=== PATIENT | male | born 1935 | race Caucasian/White ===

== ENCOUNTER → 2020-05-09 06:45 | Outpatient (CLI) | payer MEDICARE, OTHER, SELFPAY ==
[2020-03-24 12:37] VITALS: BMI 27.1
--- NOTE | 2020-05-09 14:39 | PFTCOMP_ITS ---
COMPLETE PULMONARY FUNCTION TEST INTERPRETATION Brief HPI: Patient is an 85 year old male, currently under the care of myself, who presents to [facility] for complete pulmonary function tests secondary to diagnosis of dyspnea. Respiratory therapist reports good effort and reproducible results. Interpretation: Forced expiration spirometry shows no large airways obstructive ventilatory defect with an FEV1 of 90% predicted. There is no significant bronchodilator response by strict ATS criteria. Spirograms are of good quality and plateau normally. The respiratory flow volume loop shows a normal pattern. Lung volumes by body plethysmography show a decreased total lung capacity at 4.95 L, 79% predicted. All other lung volumes are reduced symmetrically. Diffusion capacity by carbon monoxide is at the lower limit of normal at 78% predicted. The airway resistance is normal. No previous pulmonary function tests were available for review. 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
== END ==
PROVIDERS: PCP Family Medicine; Referring Provider Internal Medicine Critical Care Medicine; Visit Provider Internal Medicine Critical Care Medicine
DX: R06.00 Dyspnea, unspecified (principal); J98.6 Disorders of diaphragm
CPT/HCPCS: 94060; 94726; 94729

== ENCOUNTER → 2021-04-06 09:45 | Outpatient (CLI) | payer MEDICARE, OTHER, SELFPAY ==
[2020-10-31 09:23] VITALS: BMI 27.4
--- NOTE | 2021-04-06 13:35 | PFT ---
INTRODUCTION: The patient's is an 86-year-old male that presents for pulmonary function studies secondary to a diagnosis of asthma. Respiratory therapy reports good patient effort. Bronchodilators were used during testing. INTERPRETATION: Forced expiration spirometry demonstrates no evidence of a large airways obstructive ventilatory defect. There was no significant response to aerosolized bronchodilators. Spirograms are of good quality and plateau normally. Body plethysmography was performed and revealed a decreased TLC to 4.99 L, 79% of predicted, indicative of a mild restrictive ventilatory impairment. Diffusing capacity by single breath CO is reduced at 62% of predicted. When compared to previous pulmonary function studies from May 2020, there has been an 11% reduction in FEV1 along with a 20% reduction in DLCO. IMPRESSION: Mild restrictive ventilatory impairment with symmetric reduction in diffusing capacity. There has been worsening in the patient's FEV1 and DLCO since 2019, as noted above.
== END ==
PROVIDERS: PCP Family Medicine; Referring Provider Nurse Practitioner Acute Care; Visit Provider Nurse Practitioner Acute Care
DX: J45.909 Unspecified asthma, uncomplicated (principal)
CPT/HCPCS: 94060; 94726; 94729

== ENCOUNTER → 2021-06-07 14:44 | Outpatient (CLI) | payer MEDICARE, OTHER, SELFPAY ==
--- NOTE | 2021-06-07 14:46 | CT_ITS ---
STUDY: CT CHEST WITHOUT CONTRAST REASON FOR EXAM: Male, 86 years old. Right middle lobe lung nodule on abdominal CT. RADIATION DOSAGE (If Supplied By Facility): CTDIvol = ( 13.72 ) mGy, DLP = ( 477.73 ) mGycm TECHNIQUE: Transaxial imaging was performed without the administration of intravenous contrast material. Multiplanar coronal and sagittal images were reformatted. Individualized dose optimization techniques were used for this CT. COMPARISON: None. FINDINGS: There is a 4 mm soft tissue nodule in the right lung apex (image 15, series 4) on image 17 there is a right upper lobe 3 mm nodule. This also minimal stranding. There is a 3 mm soft tissue nodule in the right upper lobe on image 33. A 5 mm calcified nodule seen along the posterior pleural surface of the right upper lobe on image 36 there is a 3 mm soft tissue nodule anteriorly in the right upper lobe on image 62 . There is nodule in the right middle lobe along the right heart margin measuring 3 mm best seen on image 75. There is no evidence of infiltrate. There is mild emphysematous change. There is no demonstrated pleural abnormality. Normal heart and pericardium. There are calcifications of the coronary arteries. Is evidence of calcified mediastinal lymphadenopathy. Calcified lymph nodes are also seen in the subcarinal region. Normal hilar regions. Normal unenhanced pulmonary arteries. Mild atherosclerotic changes of the thoracic aorta without aneurysm. There are multi-level degenerative changes of the thoracic spine. Calcified granulomata are seen throughout the spleen. CT/Chest without Contrast IMPRESSION: 1. Multiple pulmonary nodules. These may represent uncalcified granulomata in light of the presence of old granulomatous disease. Follow-up CT in 6 months or years is recommended to confirm stability. Electronically Signed: Nathan Murcia DO at 22:52 EDT Tel [phone], Service support ,
== END ==
PROVIDERS: PCP Family Medicine; Referring Provider Internal Medicine Critical Care Medicine; Visit Provider Internal Medicine Critical Care Medicine
DX: R91.1 Solitary pulmonary nodule (principal)
CPT/HCPCS: 71250

== ENCOUNTER 2021-11-08 12:40 | Outpatient (CLI) | payer MEDICARE, OTHER, SELFPAY ==
--- NOTE | 2021-11-08 12:44 | CT_ITS ---
STUDY: CT CHEST WITHOUT CONTRAST REASON FOR EXAM: Male, 86 years old. Multiple nodules, some new RADIATION DOSAGE (If Supplied By Facility): CTDIvol = ( 14.47 ) mGy, DLP = ( 506.09 ) mGycm TECHNIQUE: Transaxial imaging was performed without the administration of intravenous contrast material. Multiplanar coronal and sagittal images were reformatted. Individualized dose optimization techniques were used for this CT. COMPARISON: Comparison is made with prior examination dated 06/07/2021. FINDINGS: Stable small benign-appearing bilateral axillary lymph nodes. Stable 3.6 mm noncalcified nodule in the right lung apex as seen on axial image #16. There is a new cavitated nodule measuring 2.3 cm x 2.6 cm in the posterior medial aspect of the left upper lobe. There is also evidence of a new nodule in the lateral aspect of the left upper lobe measuring 9.4 mm as seen on axial image #35. There is a 8.5 mm noncalcified nodule in the posterior medial aspect of the left upper lobe as seen Image #62. There is a new 5.8 mm pleural-based nodule in the lateral aspect of the left upper lobe as seen on axial image #56. This has increased in size as compared to prior study. Since prior study, there is a been a progression in the interstitial markings at the lung bases as well as in the upper lobes suggestive of progressive scarring. There is no demonstrated pleural abnormality. There are calcifications of the coronary arteries. Calcified azygos lymph node. Small mediastinal lymph nodes. Calcified left hilar lymph node. Normal unenhanced pulmonary arteries. There is atherosclerotic calcification of the aortic arch with tortuosity and elongation of the aortic arch and descending thoracic aorta. There are multi-level degenerative changes of the thoracic spine. Calcified splenic granulomas. CT/Chest without Contrast IMPRESSION: Since prior study, there has been a progression in the number as well as size of bilateral pulmonary nodules. A dominant cavitated nodule is seen in the posterior medial aspect of the left upper lobe abutting the left major fissure. This measures 2.3 size by 2.6 cm. Correlates with a PET scan is recommended. Electronically Signed: Victoriano Machuca MD at 13:22 EST ,
== END 2021-11-08 23:59 | disposition short-term general hospital (02) ==
LOC: CT 12:43
PROVIDERS: PCP Family Medicine; Referring Provider Nurse Practitioner Acute Care; Visit Provider Nurse Practitioner Acute Care
DX: R91.8 Other nonspecific abnormal finding of lung field (principal)
CPT/HCPCS: 71250

== ENCOUNTER 2021-11-13 09:42 | Outpatient (CLI) | payer MEDICARE, OTHER, SELFPAY ==
[2021-11-13 10:12] LABS: Platelet Count 245 K/mm3 (150-450)
[2021-11-13 10:25] LABS: International Normalized Ratio 1.3; Prothrombin Time (Protime)PT. 15.2 SECONDS (11.7-14.9)
[2021-11-13 10:26] LABS: Partial Thromboplast Time 32.8 Seconds (24.1-36.2)
== END 2021-11-13 23:59 | disposition home or self-care (01) ==
LOC: PAVLAB 09:44
PROVIDERS: PCP Family Medicine; Referring Provider Nurse Practitioner Acute Care; Visit Provider Nurse Practitioner Acute Care
DX: R06.02 Shortness of breath (principal); R91.8 Other nonspecific abnormal finding of lung field
CPT/HCPCS: 36415; 85049; 85610; 85730

== ENCOUNTER 2021-11-24 08:33 | Outpatient (CLI) | payer MEDICARE, OTHER, SELFPAY ==
[2021-11-24] VITALS (15 sets, daily range): BP systolic 87–132; BP diastolic 39–82; PULSE 63–97; RESP 13–34; TEMP 36.4; O2SAT 95–100; BMI 25.8
--- NOTE | 2021-11-24 | ASPIGT_PTH ---
PATIENT: GARRETT MAY LOC: [place] U#:[id number] AGE/SX: 86/M ROOM: RE11/24/[address]: ALEXA Riley : 1935 BED: DIS: 11/24/2021 SPEC #: [id number] RECD: 11/24/21 11:00 STATUS: SHERLY MAGDALENA #: [id number] JAISON: 11/24/21 00:[address]: Alondra Mcbride NP DEPT: SURGICAL PATHOLOGY RECD BY: Ekaterina Lozano ENTERED: 11/24/21 13:03 SP TYPE: ASP RAD OTHR DR: Dr. Marco Resendiz MD Tissues: Liver, NOS Procedures: FNA Specimen Adequacy Special Stain Group II Surgery Specimen Level IV Imprint (control) HEADER OPERATION: CT-guided left lung biopsy PRE-OP DIAGNOSIS: Left lung mass 2 cm TISSUE SUBMITTED: Left lung mass, CT-guided core biopsy MICROSCOPIC DIAGNOSIS Left lung mass, CT-guided core biopsy: Scant minute fragments of lung parenchymal tissue, negative for malignancy. See comment. DAVID:emely 11/27/2021 COMMENT The specimen is evaluated at the time of biopsy by Dr. Darling. Immediate Evaluation = Negative for malignant cells. If there is high suspicion of malignancy, re-biopsy is suggested if clinically indicated. MICROSCOPIC DESCRIPTION Slides are reviewed. GROSS DESCRIPTION Received in fixative is one container labeled with the patient's name and designated left lung mass, CT-guided core biopsy. The specimen consists of scant fragments of nails soft tissue measuring 0.2 x 0.2 x <0.1 cm. The specimen is totally submitted in one cassette. Two touch imprints are prepared at the time of core biopsy. / DAVID:emely 11/24/2021 TC: Cannot code CPT: 32517, 80681
--- NOTE | 2021-11-24 08:38 | CT_ITS ---
PROCEDURE: CT GUIDED CORE NEEDLE BIOPSY OF A LEFT LUNG LESION INDICATION: Male, 86 years old. Left lung mass 2 cm PHYSICIAN: Dr. TOMER Nichole CONSENT: Written informed consent was obtained having explained the risks, benefits and alternatives in detail with the patient who accepted the risks and agreed to proceed. Laboratory review and clinical assessment was performed. CONSCIOUS SEDATION PROTOCOL: The Drugs used were: 2 mg Versed, IV., and 50 mcg Fentanyl, IV. The sedation time was: 23 minutes. Conscious sedation was started at 10:25 AM and terminated at 10:48 AM The conscious sedation protocol was independently monitored. RADIATION DOSAGE (If Supplied By Facility): CTDIvol = ( 17 ) mGy, DLP = ( 514.15 ) mGycm Individualized dose optimization techniques were used for this CT. TECHNIQUE: The patient was placed in the prone position. A noncontrast CT was performed to localize the lesion in the left upper lobe . The skin surface was prepped and draped in a sterile fashion. 1% lidocaine was used for local anesthesia. Using CT guidance, a 20-gauge coaxial biopsy device was advanced to the periphery of the lesion. A total of 5 core specimens were obtained. The specimens were placed in a formalin solution. A post procedure CT demonstrated no adverse sequelae or pneumothorax. The patient tolerated the procedure well without adverse event. A negative biopsy does not exclude malignancy. Further imaging or clinical followup based on patient condition and degree of clinical suspicion for malignancy. Suggest rebiopsy, if biopsy results do not match with clinical scenario. CT/Biopsy/Inj or Needle Placement IMPRESSION: 1. CT directed core needle biopsy of the left upper lobe pulmonary nodule using CT image guidance with image documentation as described. Pathology results are pending. 2. Conscious Sedation protocol utilized with independent monitoring. Electronically Signed: Victoriano Machuca MD at 11:16 EST ,
--- NOTE | 2021-11-24 09:57 | NURSING ---
Patient's pre-procedural assessment lung sounds were reported to Dr. Machuca. Breathing treatment was ordered (see MAR). Respiratory and pharmacy notified of order as well as patient. Pt agreeable to breathing treatment prior to biopsy.
[2021-11-24] MEDS: Ipratropium/Albuterol Sulfate 3 ML AMPUL.NEB INHALATION (10:02)
[2021-11-24] MEDS: Midazolam 2 MG/2 ML Syringe IV (10:25)
[2021-11-24] MEDS: fentaNYL 100 MCG/2 ML Ampul IV (10:28)
[2021-11-24] MEDS: Lidocaine 2% (20 ml mdv) 20 ML Vial INFILT (10:35)
--- NOTE | 2021-11-24 10:58 | RAD_ITS ---
STUDY: X-RAY CHEST REASON FOR EXAM: Male, 86 years old. Pneumothorax -- Immediately post lung biopsy TECHNIQUE: AP inspiration and expiration views. COMPARISON: None. FINDINGS: The patient is status post left upper lobe lung biopsy. There is no evidence of pneumothorax. RAD/Chest Insp/Exp 2 View IMPRESSION: No evidence of pneumothorax on the immediate post left lung biopsy radiographs. Electronically Signed: Victoriano Machuca MD at 11:14 EST ,
--- NOTE | 2021-11-24 13:01 | RAD_ITS ---
STUDY: X-RAY CHEST REASON FOR EXAM: Male, 86 years old. Pneumothorax -- 2 hours post lung biopsy TECHNIQUE: AP inspiration and expiration views. COMPARISON: Comparison is made with prior study done earlier today. FINDINGS: No evidence of pneumothorax on the 2 hour post lung biopsy radiographs. RAD/Chest Insp/Exp 2 View IMPRESSION: No evidence of pneumothorax on the 2 hour post lung biopsy radiograph. Electronically Signed: Victoriano Machuca MD at 8:30 EST ,
== END 2021-11-24 23:59 | disposition home or self-care (01) ==
LOC: CT 08:35
PROVIDERS: PCP Family Medicine; Referring Provider Nurse Practitioner Acute Care; Visit Provider Nurse Practitioner Acute Care
DX: R91.8 Other nonspecific abnormal finding of lung field (principal)
CPT/HCPCS: 32408; 71046; 77012; 88172; 88305; 88307; 88313; 94640; 99156; J7040; A4216

== ENCOUNTER 2021-12-27 13:55 | Outpatient (CLI) | payer MEDICARE, OTHER, SELFPAY | END 2021-12-27 23:59 | disposition home or self-care (01) | LOC: LAB 13:57 | PROVIDERS: PCP Family Medicine; Referring Provider Internal Medicine Critical Care Medicine; Visit Provider Internal Medicine Critical Care Medicine | DX: R06.02 Shortness of breath (principal); R05.8 Other specified cough; R91.8 Other nonspecific abnormal finding of lung field | CPT/HCPCS: 87070; 87205 ==

== ENCOUNTER 2021-12-29 11:59 | Outpatient (CLI) | payer MEDICARE, OTHER, SELFPAY ==
[2021-12-29 12:20] LABS: Platelet Count 216 K/mm3 (150-450)
[2021-12-29 12:33] LABS: International Normalized Ratio 1.2; Prothrombin Time (Protime)PT. 14.6 SECONDS (11.7-14.9)
[2021-12-29 12:34] LABS: Partial Thromboplast Time 32.3 Seconds (24.1-36.2)
== END 2021-12-29 23:59 | disposition home or self-care (01) ==
LOC: PAVLAB 12:01
PROVIDERS: PCP Family Medicine; Referring Provider Internal Medicine Critical Care Medicine; Visit Provider Internal Medicine Critical Care Medicine
DX: D86.0 Sarcoidosis of lung (principal); R06.00 Dyspnea, unspecified
CPT/HCPCS: 36415; 85049; 85610; 85730

== ENCOUNTER 2022-01-03 12:23 | Day surgery (SDC) | payer MEDICARE, OTHER, SELFPAY ==
[2022-01-03] VITALS (10 sets, daily range): BP systolic 94–124; BP diastolic 59–81; PULSE 57–95; RESP 16–24; TEMP 36.1–36.2; O2SAT 95–100; BMI 25.2
--- NOTE | 2022-01-03 | LUNB_PTH ---
PATIENT: GARRETT MAY LOC: EN U#:[id number] AGE/SX: 87/M ROOM: RE01/03/[address]: Dr. Arnel Yang MD : 1935 BED: DIS: 01/03/2022 SPEC #: [id number] RECD: 01/03/22 15:00 STATUS: SHERLY MAGDALENA #: [id number] JAISON: 01/03/22 00:[address]: Arnel Yang DEPT: SURGICAL PATHOLOGY RECD BY: Ekaterina Lozano ENTERED: 01/04/22 08:41 SP TYPE: LUNG BX OTHR DR: Dr. Marco Resendiz MD Tissues: A - Lung, NOS B - Trachea, NOS Procedures: Special Stain Group I Surgery Specimen Level IV AFB Stain (control) GMS Stain (control) HEADER OPERATION: Bronchoscopy with BAL/biopsy PRE-OP DIAGNOSIS: Abnormal CT - sarcoidosis TISSUE SUBMITTED: A ? Endobronchial biopsy left upper lobe, B - Endobronchial biopsy trachea MICROSCOPIC DIAGNOSIS A. Left upper lobe, endobronchial biopsy: Fragments of bronchial mucosa with ulceration, moderate to marked chronic inflammation and necrotizing and non-necrotizing granuloma formation. Negative for malignancy. See comment. B. Tracheal, endobronchial biopsy: Fragments of bronchial mucosa with ulceration, moderate to marked chronic inflammation and necrotizing and non-necrotizing granuloma formation. Negative for malignancy. See comment. SJ:rg 01/05/2022 COMMENT A. Special stains for acid fast bacilli and fungi are negative for organisms; matched controls are appropriate. B. Special stains for acid fast bacilli and fungi are negative for organisms; matched controls are appropriate. Focal dystrophic calcification is also noted. Correlation with clinical, radiologic findings and appropriate follow up are necessary. Case has been reviewed in consultation with Dr. Peña who concurs with the above diagnosis. IDC:AM MICROSCOPIC DESCRIPTION Slides are reviewed. GROSS DESCRIPTION A - Received in fixative is one container labeled with the patient's name and designated biopsy of left upper lobe. The specimen consists of multiple irregular fragments of light nails soft tissue that in aggregate measure 1 x 0.2 x 0.1 cm. The specimen is totally submitted in one cassette. B - Received in fixative is one container labeled with the patient's name and designated biopsy of trachea. The specimen consists of multiple irregular fragments of light nails soft tissue that in aggregate measure 1 x 0.2 x 0.1 cm. The specimen is totally submitted in one cassette. / SJ:rg 01/04/2022 TC:3 CPT: 46612 x2, 34970 x4
--- NOTE | 2022-01-03 | FLU_PTH ---
PATIENT: GARRETT MAY LOC: EN U#:[id number] AGE/SX: 87/M ROOM: RE01/03/[address]: Dr. Arnel Yang MD : 1935 BED: DIS: 01/03/2022 SPEC #: [id number] RECD: 01/03/22 15:00 STATUS: SHERLY SHEPARDLoraine #: [id number] JAISON: 01/03/22 00:[address]: Arnel Yang DEPT: CYTOLOGY RECD BY: Ekaterina Lozano ENTERED: 01/04/22 08:40 SP TYPE: Fluid OTHR DR: Dr. Marco Resendiz MD Tissues: A - Lung, NOS B - Lung, NOS Procedures: Special Stain Group II Surgery Specimen Level IV Cytospin Fluid HEADER OPERATION: Bronchoscopy with BAL/biopsy PRE-OP DIAGNOSIS: Abnormal CT - sarcoidosis TISSUE SUBMITTED: A ? BAL PATRICIA B - Wash DIAGNOSIS CYTOLOGY A. PATRICIA, BAL (cytospin and cell block): Negative for malignant cells. B. Wash fluid (cytospin and cell block): Negative for malignant cells. Bloody specimen. DAVID:emely 01/05/2022 COMMENT Please make reference to corresponding surgical specimen ([id number]). CYTOLOGY STUDY Slides are reviewed. CYTOLOGY GROSS A - Received is 5 ml of light pink hazy fluid labeled with the patient's name and and designated per the requisition as BAL PATRICIA. Submitted for cytology preparation including cell block. B - Received is 20 ml of cloudy red fluid labeled with the patient's name and and designated per the requisition as wash. Submitted for cytology preparation including cell block. / emely 01/04/2022 TC:5 CPT: 34313 x2, 10959 x2
[2022-01-03] MEDS: Lactated Ringers 1,000 ML 15 ML IV (12:53)
--- NOTE | 2022-01-03 13:42 | PCM.HP.BLA ---
History and Physical Date of Admission: 01/03/22 Patient seen and examined prior to the procedure. All questions answered. No changes from below. Anticipate BAL, but may biopsy pending findings. Patient off anticoagulation since Saturday. Will proceed as planned. Assessment and Plan Assessment and Plan (1) Sarcoidosis of lung: Status: Acute (2) Asthma: Status: Chronic Qualifiers: Asthma severity: mild Asthma persistence: persistent Asthma complication type: uncomplicated Qualified Code(s): J45.30 - Mild persistent asthma, uncomplicated (3) Multiple nodules of lung: Status: Acute Orders: Orders: Partial Thromboplast Time Today D86.0 Prothrombin Time w/INR Today D86.0 Referrals: Ophthalmology D86.0 Plan - Dr. 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 Patient does have a cavitating lesion in other areas of increased fibrotic changes noted in the lung indicating that therapy will likely be necessary. Unfortunately, left upper lobe cavitating lesion could represent concomitant fungal infection. Prior to initiation of systemic steroids for a protracted period, will need a bronchoscopy with BAL. Cannot exclude the need for concomitant antifungal therapy. Patient would also require an executive casino host evaluation for possible ocular involvement. EKGs in the past have not shown any block physiology. Will obtain bronchoscopy. If culture negative, anticipate proceeding with 60 mg of prednisone for 2 weeks and then wean by 10 mg every week until off. Patient will need a PFT at the end of this. If patient has concomitant infection, this will likely need to be treated versus sent to infectious disease for recommendations. Obtain bronchoscopy. Plan for immunosuppression as above. Plan Details Other Orders: Orders: Bronchoscopy Today Platelet Count Today R06.00 Partial Thromboplast Time Today R06.00 Prothrombin Time w/INR Today R06.00 Follow Up: 1 Month (CSM) HPI FU ENT VISIT Details: Patient is an 86-year-old male, currently under the care of Dr. Resendiz, who presents for evaluation secondary to recent biopsy. 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 This came back with noncaseating granulomas and there was some concern for sarcoidosis, so the patient made an appointment to discuss the results. Patient overall feels subjectively unchanged compared to previous. Patient states that he has constant nausea and no energy. Patient has been noting significant hoarseness that is worse since he had his biopsy. Patient continues to have a cough productive of dark garcia sputum. Patient is not reporting any isaiah hemoptysis. Patient states he has had some shortness of breath on exertion, but does not feel this is a predominant finding. Patient is not reporting any chest pain, nominal pain, nausea or vomiting. No fever or chills have been noted. Patient saturations have been in the upper 90s. Patient has been compliant with the Symbicort denies any thrush or worsening sore throat. Patient has been on his Eliquis and denies any bleeding complications. Review of systems otherwise negative from a constitutional, HEENT, respiratory, cardiovascular, GI, genitourinary, musculoskeletal, skin, neurologic, psychiatric and hematologic system unless stated above. Documentation reviewed 4 pages of documentation were reviewed prior to the office visit. Patient had been seen by ENT secondary to sore throat and drainage. Patient did have a fiberoptic laryngoscopy that showed edema with a lesion on the right true vocal cord. It does appear that there was a biopsy completed, but these findings were not included in the documentation. During the office visit, did receive pathology results from vocal cord showing squamous hyperplasia with granulomatous and from inflammation. No AFB or fungi noted. Findings suggestive of sarcoidosis. Intake Vital Signs 12/27/21 15:06 12/28/21 09:03 Height 5 ft 10 in 5 ft 10 in Weight: 81.647 kg BMI 25.8 BP 109/68 Blood Pressure Location Lt brachial Position Sitting Respiration 17 Pulse 60 Pulse Source Monitor Temp 36.7 C Temperature Source Temporal Artery Pulse Oximetry (%) 97 Oxygen Delivery Method room air Intake Visit Reasons: FU ENT VISIT Director Audience Marketing Required: No Accompanied by: Self Is patient in pain?: No Allergies levofloxacin Adverse Reaction (Verified 12/28/21 09:05) leg weakness Medications lorazepam 1 mg tablet 1 mg PO TID PRN 03/24/20 [History Confirmed 12/28/21] metoprolol succinate 25 mg capsule sprinkle, ext. release 24 hr 12.5 mg PO BID 03/24/20 [History Confirmed 12/28/21] mirtazapine 30 mg tablet 30 mg PO DAILY 03/24/20 [History Confirmed 12/28/21] tamsulosin 0.4 mg capsule 0.4 mg PO DAILY 03/24/20 [History Confirmed 12/28/21] albuterol sulfate 90 mcg/actuation aerosol inhaler 2 puff INHALATION Q6H PRN #8.5 g 04/18/21 [Rx Confirmed 12/28/21] budesonide-formoterol HFA 160 mcg-4.5 mcg/actuation aerosol inhaler 2 puff INHALATION BID #1 ea 07/06/21 [Rx Confirmed 12/28/21] apixaban 5 mg tablet 5 mg PO BID 09/18/21 [History Confirmed 12/28/21] PFSH Medical History Acid reflux Chronic cough Depression Diverticulitis h/o back surgery 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) Impaired glucose tolerance Palpitations Panic disorder Polymyalgia Surgical History H/O non-cataract eye surgery Family History Sister Cancer Brother Cancer Social History Smoking Status: Former smoker quit date: 10/07/80 Exam Const Constitutional: Positive conversant, cooperative, in no acute respiratory distress, healthy appearing, well developed, well nourished and good hygiene Extremely hoarse voice Head Head: Yes normocephalic and Yes atraumatic Eyes Eye: Positive clear conjunctiva; Negative nystagmus Ears Ear: Positive hard of hearing and external ears normal Nose Nose: Yes external nose normal and Yes other Mouth Mouth: Positive oral mucosae normal, good dentition and posterior oropharynx is adequate; Negative oral thrush present Mallampati Score: II: Mallampati Score Neck Neck: Positive normal visual inspection, full ROM and trachea midline Chest Wall Chest: Positive normal inspection of the chest and symmetric chest movement Resp lung sounds: Positive clear to auscultation, good air exchange, normal expiratory time and normal respiratory effort; Negative wheezes, rhonchi (Lower lobe only) or rales Cardio Cardiac: Positive regular rate, regular rhythm, S1 normal and S2 normal; Negative murmur, rub or gallop GI GI: Positive normal to inspection Genitourinary: Positive deferred Musc Musculoskeletal: Positive steady gait; Negative using an assistive device for ambulation, kyphosis or scoliosis Skin Pulmonary Skin Exam: Positive intact; Negative lesion, rash, ulcers or erythema Extremities Extremities: No clubbing, No cyanosis and No edema Neuro Neurologic: Yes no focal neuro deficits, Yes conversant, Yes cooperative, Yes normal cognition, Yes normal coordination, Yes normal concentration and Yes understands questions Psych Appearance: Positive grossly normal, eye contact and well kempt Mental Status: Positive mental status grossly normal Mood: Positive congruent mood Affect: Positive normal affect Assessment & Plan Assessment/Plan (1) Sarcoidosis of lung: (2) Multiple nodules of lung:
[2022-01-03] MEDS: Lidocaine 2% Jelly 1 APPLIC Tube (14:48)
[2022-01-03] MEDS: Lidocaine 2% (5ml sdv) 5 ML VIAL.MPF (14:48)
[2022-01-03 15:11] LABS: Cytology, Body Fluid / CSF SEE PATHOLOGY REPORT
--- NOTE | 2022-01-03 15:14 | OP.BRONCH_ITS ---
Patient Name: José Miguel Okeefe Procedure Date: 01/03/2022 1:55 PM Date of : 1935 Age: 87 Procedure: Bronchoscopy Indications: Unresolving left upper lobe infiltrate Providers: Arnel Yang MD Medicines: See the Anesthesia note for documentation of the administered medications Complications: No immediate complications Procedure: Pre-Anesthesia Assessment: - A History and Physical has been performed. Patient meds and allergies have been reviewed. The risks and benefits of the procedure and the sedation options and risks were discussed with the patient. All questions were answered and informed consent was obtained. Patient identification and proposed procedure were verified prior to the procedure by the physician, the nurse and the inoculator in the procedure room. Mental Status Examination: alert and oriented. Airway Examination: Mallampati Class II (the uvula but not tonsillar pillars visualized). Respiratory Examination: rhonchi. CV Examination: irregularly irregular rate and rhythm. Prior Anticoagulants: The patient has taken Eliquis (apixaban), last dose was 4 days prior to procedure. ASA Grade Assessment: III - A patient with severe systemic disease. After reviewing the risks and benefits, the patient was deemed in satisfactory condition to undergo the procedure. The anesthesia plan was to use monitored anesthesia care (MAC). Immediately prior to administration of medications, the patient was re-assessed for adequacy to receive sedatives. The heart rate, respiratory rate, oxygen saturations, blood pressure, adequacy of pulmonary ventilation, and response to care were monitored throughout the procedure. The physical status of the patient was re-assessed after the procedure. After I obtained informed consent, the scope was passed under direct vision. Throughout the procedure, the patient's blood pressure, pulse, and oxygen saturations were monitored continuously. The bronchoscope was introduced through the right nostril and advanced to the tracheobronchial tree. The procedure was accomplished without difficulty. The patient tolerated the procedure fairly well. Findings: Trachea/Mary Kay Abnormalities: True vocal cords were pretty much nonexistent (see picture). Erythema was found throughout the tracheobronchial tree. Notable, mucopurulent, tenacious, white secretions were found throughout the tracheobronchial tree. Some areas of granulation tissue were noted. They were not obstructing the airway. An airway deviation with moderate narrowing of the lumen was found in the trachea. Pseudomembranes were found throughout the tracheobronchial tree. Rinsing of secretions left white puffy material. Washings were obtained in the entire tracheobronchial tree and sent for routine cytology and bacterial, AFB and fungal analysis. The return was blood-tinged and mucopurulent. Multiple specimens were obtained and pooled into one specimen, which was sent for analysis. BAL was performed in the PATRICIA apical posterior segments (B1 & B2) of the lung and sent for routine cytology and bacterial, AFB and fungal analysis. 80 mL of fluid were instilled. 25 mL were returned. The return was cloudy. There were no mucoid plugs in the return fluid. Endobronchial biopsies were performed in the left upper lobe using forceps and sent for histopathology examination and fungal analysis. 7 were obtained. Additional endobronchial biopsies were performed in the trachea using forceps and sent for histopathology examination and fungal analysis. Five samples were obtained. Estimated blood loss: 20 mL. Impression: - Unresolving left upper lobe infiltrate - Erythema was present throughout the tracheobronchial tree. - Notable, mucopurulent, tenacious, white secretions were found throughout the tracheobronchial tree. - An airway deviation with moderate narrowing of the lumen was found in the trachea. - Pseudomembranes were visualized throughout the tracheobronchial tree. - Washings were obtained. - Bronchoalveolar lavage was performed. - An endobronchial biopsy was performed. - An endobronchial biopsy was performed. Recommendation: - The patient will be observed post-procedure, until all discharge criteria are met. - Await BAL, biopsy and washing results. - Follow up with bronchoscopist as previously scheduled. Procedure Code(s): --- Professional --- 75991, Bronchoscopy, rigid or flexible, including fluoroscopic guidance, when performed; with bronchial or endobronchial biopsy(s), single or multiple sites 89262, Bronchoscopy, rigid or flexible, including fluoroscopic guidance, when performed; with bronchial alveolar lavage Diagnosis Code(s): --- Professional --- R91.8, Other nonspecific abnormal finding of lung field R09.89, Other specified symptoms and signs involving the circulatory and respiratory systems J39.8, Other specified diseases of upper respiratory tract J98.09, Other diseases of bronchus, not elsewhere classified CPT copyright 2017 [employer]. All rights reserved. The codes documented in this report are preliminary and upon technician review may be revised to meet current compliance requirements. MD Arnel Calderon MD 01/03/2022 3:14:11 PM This report has been signed electronically. Number of Addenda: 0 Note Initiated On: 01/03/2022 1:55 PM
[2022-01-03 17:28] LABS: Lymphocytes 8 %; Macrophages 20 %; Neutrophil (Segs) 58 %; Other Cell Type/BF 14 %; Source- Body Fluid BRONCHIAL LAVAGE
[2022-01-03 17:29] LABS: Appearance/Body Fluid CLEAR; Color/Body Fluid COLORLESS
[2022-01-03 17:32] LABS: Body Fluid QC Type(s) BF1Q
[2022-01-03 17:35] LABS: Red Cell Count/Body Fluid 3240 /mm3; White Blood Count/Body Fluid 126 /mm3
[2022-01-03 18:17] LABS: Appearance/Body Fluid TURBID; Color/Body Fluid RED; Lymphocytes 18 %; Monocytes 5 %; Neutrophil (Segs) 77 %; Source- Body Fluid BRONCHIAL LAVAGE
[2022-01-03 18:18] LABS: Body Fluid QC Type(s) BF1Q; White Blood Count/Body Fluid 990 /mm3
[2022-01-04 13:50] LABS: Pathologist Comment/Body Fluid Reviewed
[2022-01-04 13:51] LABS: Pathologist Comment/Body Fluid Reviewed
== END 2022-01-03 23:59 | disposition home or self-care (01) ==
LOC: EN 12:24 → AC 12:25
PROVIDERS: PCP Family Medicine; Referring Provider Family Medicine; Visit Provider Internal Medicine Critical Care Medicine
PROC: 0BJ08ZZ Inspection of Tracheobronchial Tree, Via Natural or Artificial Opening Endoscopic (ICD-10-PCS; CPT 31622; principal; 2022-01-03 13:15)
DX: D86.0 Sarcoidosis of lung (principal); M35.3 Polymyalgia rheumatica; R91.8 Other nonspecific abnormal finding of lung field; J45.30 Mild persistent asthma, uncomplicated; N40.1 Benign prostatic hyperplasia with lower urinary tract symptoms; Z79.01 Long term (current) use of anticoagulants; Z79.899 Other long term (current) drug therapy; Z87.891 Personal history of nicotine dependence
CPT/HCPCS: 31624; 31625; 87015; 87070; 87077; 87101; 87116; 87186; 87205; 87206; 88108; 88305; 88312; 88313; 89050; J7120; J2405

== ENCOUNTER → 2023-04-22 | Outpatient (CLI) | payer MEDICARE, OTHER, SELFPAY | END | disposition home or self-care (01) | LOC: LABSPEC 12:51 | PROVIDERS: PCP Family Medicine; Referring Provider Internal Medicine Critical Care Medicine; Visit Provider Internal Medicine Critical Care Medicine | DX: J15.212 Pneumonia due to Methicillin resistant Staphylococcus aureus (principal) | CPT/HCPCS: 87070; 87205 ==

== ENCOUNTER → 2023-08-06 | Outpatient (CLI) | payer MEDICARE, OTHER, SELFPAY ==
[2023-08-06 08:00] VITALS: PULSE 53; PULSE 54; PULSE 92; PULSE 93; PULSE 94; PULSE 95; PULSE 99; O2SAT 93; O2SAT 95; O2SAT 96; O2SAT 97; O2SAT 98
--- NOTE | 2023-08-07 08:03 | WT_ITS ---
PSN 6 Minute Walk Test 6 Minute Walk Test 6 Minute Walk Test: 6 Minute Walk Test PSN:6-Minute Walk Test Start: 08/06/23 08:20 Freq: Status: Active Protocol: [id number].6MINW Document 08/06/23 08:00 [facility] (Rec: 08/06/23 08:23 [facility] Desktop) 6 Minute Walk Test Date Performed 08/06/23 Time Performed 08:00 Height 5 ft 10 in Weight: 190 lb Weight in Pounds 190.[address]: Rae Moscoso Assistive device used: None Pre-test Oxygen Delivery Method Room Air Pulse Ox 97 Pulse Rate (60-100) 53 L Dyspnea Dana Scale (0-10) 0 Exertion Dana Scale (6-20) 6 1st minute Oxygen Delivery Method Room Air Pulse Rate (60-100) 99 Dyspnea Dana Scale (0-10) 85 2nd minute Oxygen Delivery Method Room Air Pulse Ox 95 Pulse Rate (60-100) 92 3rd minute Oxygen Delivery Method Nasal Cannula Pulse Ox 96 Pulse Rate (60-100) 93 4th minute Oxygen Delivery Method Room Air Pulse Ox 93 Pulse Rate (60-100) 92 5th minute Oxygen Delivery Method Room Air Pulse Ox 96 Pulse Rate (60-100) 95 6th minute Oxygen Delivery Method Room Air Pulse Ox 96 Pulse Rate (60-100) 94 Dyspnea Dana Scale (0-10) 2 Exertion Dana Scale (6-20) 12 Reported Symptoms Increased Work of Breathing Post-test Oxygen Delivery Method Room Air Pulse Ox 98 Pulse Rate (60-100) 54 L Full Laps Walked 16 Partial Lap, Number of Tiles Walked 26 Total Distance Walked (ft) 970 Interpretation Interpretation: The patient ambulated 970 feet over the course of 6 minutes beginning on room air without assistive devices or breaks. Pretesting oxygen saturation was noted to be 97% on room air. With ambulation, the maty oxygen saturation was 93%. There is no significant exertional oxygen desaturation. Recommendations Recommendations: There is no indication for the use of supplemental oxygen at this time.
== END | disposition home or self-care (01) ==
LOC: PSN 07:50
PROVIDERS: PCP Family Medicine; Referring Provider Nurse Practitioner Acute Care; Visit Provider Nurse Practitioner Acute Care
DX: R06.02 Shortness of breath (principal)
CPT/HCPCS: 94618

== ENCOUNTER → 2023-11-28 | Outpatient (CLI) | payer MEDICARE, OTHER, SELFPAY ==
--- OUTSIDE RECORDS SUMMARY | 2023-11-28 15:45 | XMS RPT_ITS | CCD ---
Author Name Unknown Address [address] [place] [address] Organization [facility] Care Team Providers Care Gunite Mixer Name Role Phone COURT [place] Admitting Unavailable COURT [place] Primary Care Unavailable [facility] [place] Attending Unavailable MARCO RESENDIZ Consulting Unavailable PROVIDER, UNKNOWN Consulting Unavailable PROVIDER, UNKNOWN Consulting Unavailable PROVIDER, UNKNOWN Consulting Unavailable EASTON MICHEL MD Primary Care UnavailEASTON Joy MD Attending UnavailEASTON Joy MD Admitting UnavailMARCO Barahona Consulting Unavailable PROVIDER, UNKNOWN Consulting Unavailable PROVIDER, UNKNOWN Consulting Unavailable PROVIDER, UNKNOWN Consulting Unavailable MAURI MILAN MD Primary Care Unavailable MAURI MILAN MD Attending Unavailable MARCO RESENDIZ Consulting Unavailable MAURI MILAN MD Admitting Unavailable PROVIDER, UNKNOWN Consulting Unavailable PROVIDER, UNKNOWN Consulting Unavailable PROVIDER, UNKNOWN Consulting Unavailable MAURI MILAN MD Primary Care Unavailable MAURI MILAN MD Attending Unavailable MARCO RESENDIZ Consulting Unavailable MAURI MILAN MD Admitting Unavailable PROVIDER, UNKNOWN Consulting Unavailable PROVIDER, UNKNOWN Consulting Unavailable PROVIDER, UNKNOWN Consulting Unavailable MAURI MILAN MD Admitting Unavailable MAURI MILAN MD Attending Unavailable MARCO RESENDIZ Consulting Unavailable MAURI MILAN MD Primary Care Unavailable PROVIDER, UNKNOWN Consulting Unavailable PROVIDER, UNKNOWN Consulting Unavailable PROVIDER, UNKNOWN Consulting Unavailable EASTON MICHEL MD Primary Care UnavailEASTON Joy MD Attending UnavailEASTON Joy MD Admitting UnavailMARCO Barahona Consulting Unavailable PROVIDER, UNKNOWN Consulting Unavailable PROVIDER, UNKNOWN Consulting Unavailable PROVIDER, UNKNOWN Consulting Unavailable COURT [place] Admitting Unavailable COURT [place] Primary Care Unavailable COURT [place] Attending Unavailable MARCO RESENDIZ Consulting Unavailable PROVIDER, UNKNOWN Consulting Unavailable PROVIDER, UNKNOWN Consulting Unavailable PROVIDER, UNKNOWN Consulting Unavailable COURT [place] Admitting Unavailable COURT [place] Primary Care Unavailable COURT [place] Attending Unavailable MARCO RESENDIZ Consulting Unavailable PROVIDER, UNKNOWN Consulting Unavailable PROVIDER, UNKNOWN Consulting Unavailable PROVIDER, UNKNOWN Consulting Unavailable COURT [place] Primary Care Unavailable COURT [place] Attending Unavailable MARCO RESENDIZ Consulting Unavailable COURT [place] Admitting Unavailable PROVIDER, UNKNOWN Consulting Unavailable PROVIDER, UNKNOWN Consulting Unavailable PROVIDER, UNKNOWN Consulting Unavailable Martín COTA, Marco Arango Unavailable Pulmonary Provider Unavailable Unavailable [facility] Unavailable Ben COTA, Dr. Seo Unavailable Trey COTA, Dr. Seals Unavailable Rae VALDEZ, Alondra Unavailable Joshua COTA., Dr. Menezes Unavailable [phone] Alofnso GAXIOLAC, Starla Phelan Unavailable Miguelito CUSTOMER DEVELOPMENT REPRESENTATIVE, Bhavna E Unavailable Unavailable Davy CUSTOMER DEVELOPMENT REPRESENTATIVE, Bela C Unavailable Unavailable Gogoi (scribe), Hemanta Unavailable Unavaila ble Jesus COTA, Chidi Trevizo Unavailable Mala GAXIOLAC, Raciel Elizondo Unavailable Mala, Francisca C Unavailable Unavailable Mala VENCES, Elina L Unavailable Unavail able Orlando CUSTOMER DEVELOPMENT REPRESENTATIVE, Jessica Unavailable Unavailable Walter VENCES, Nanci Trevizo Unavailable Unavaila ble Rodolfo CUSTOMER DEVELOPMENT REPRESENTATIVE, Elise Unavailable Unavailable Jose VENCES, Venus Unavailable [phone] Alverto RN, Ayanna Martini Unavailable Unavailable Forrester CUSTOMER DEVELOPMENT REPRESENTATIVE, Gisela Unavailable Unavailable Mutersbamaude CUSTOMER DEVELOPMENT REPRESENTATIVE, Colleen K Unavailable Unavai marcela GAXIOLAC, Arlette J Unavailable Dave (Scribe), Rashad Unavailable Unavailab le Sosa CUSTOMER DEVELOPMENT REPRESENTATIVE, Ana L Unavailable Unavailab le Mary CUSTOMER DEVELOPMENT REPRESENTATIVE, Lilly Vazquez Unavailable Unavailab valentina Agarwal CUSTOMER DEVELOPMENT REPRESENTATIVE, Dyana Greene Unavailable Unavailab valentina Tomlinson MA, Jessica Unavailable Unavailable Maico COTA, Tono Trevizo Unavailable Vess CUSTOMER DEVELOPMENT REPRESENTATIVE, Neilee L Unavailable Unavailable Wengererika CUSTOMER DEVELOPMENT REPRESENTATIVE, Patt Unavailable Unavailabl e Priscila CUSTOMER DEVELOPMENT REPRESENTATIVEMag Unavailable Unavaila ble Unavailable Unavailable Medications Current Medications Medication Drug Class(es) Dates Sig (Normalized) Sig (Original) apixaban 5 mg oral tablet (1 source) Factor Xa Inhibitor take 1 tablet by mouth twice daily Eliquis 5 MG Oral Tablet ; 1 two times daily (5 MG) LORazepam 0.5 mg oral tablet (1 source) Benzodiazepine Start: 05-28-2023 Ativan 0.5 mg tablet ; 1 (one) Tablet three times daily, as needed for anxiety for 0 days Quantity: 90 {Tablet} Refills: 0 Ordered: 28-May-2023 MD Marco Resendiz Start: 28-May-2023 Comments: Medication taken as needed. .[id number]/[id number] m Completed/Discontinued Medications Medication Drug Class(es) Dates Sig (Normalized) Sig (Original) acyclovir 800 mg oral tablet (1 source) Herpesvirus Nucleoside Analog DNA Polymerase Inhibitor, Herpes Simplex Virus Nucleoside Analog DNA Polymerase Inhibitor, Herpes Zoster Virus Nucleoside Analog DNA Polymerase Inhibitor Start: 01-05-2013 End: 01-12-2013 ACYCLOVIR, 800MG (Oral Tablet) ; 1 Tablet every four hours, five times per day while awake for 7 days Quantity: 35 {Tablet} Refills: 0 Ordered: 05-Jan-2013 ANDREEA Swan Start: 05-Jan-2013 End: 12-Jan-2013 Status: Inactive amoxicillin 875 mg / clavulanate 125 mg oral tablet (2 sources) Penicillin-class Antibacterial Start: 03-21-2020 End: 07-21-2020 take 1 tablet by mouth twice daily Amoxicillin-Pot Clavulanate 875-125 MG Oral Tablet ; 1 (one) Tablet two times daily for 10 days Quantity: 20 {Tablet} Refills: 0 Ordered: 21-Mar-2020 MD Chidi Lee Start: 21-Mar-2020 End: 31-Mar-2020 Status: Inactive Problems Active Problems Problem Classification Problem Date Documented Date Episodic/Chronic Abdominal pain (5 sources) Left lower quadrant pain; Translations: [Left lower quadrant pain] 05-28-2023 Episodic Administrative/social admission (4 sources) Issue of repeat prescriptions 07-09-2016 Episodic Allergic reactions (2 sources) Nummular eczema; Translations: [Nummular dermatitis] 12-04-2022 Episodic Anxiety disorders (20 sources) Panic disorder; Translations: [Panic disorder [episodic paroxysmal anxiety]] 05-28-2023 Chronic Asthma (4 sources) Asthma; Translations: [Unspecified asthma, uncomplicated] 05-28-2023 Chronic Cardiac dysrhythmias (8 sources) Paroxysmal atrial fibrillation; Translations: [Paroxysmal atrial fibrillation] 05-28-2023 Chronic Cardiac dysrhythmias (3 sources) Bradycardia; Translations: [Bradycardia, unspecified] 02-28-2021 Episodic Chronic obstructive pulmonary disease and bronchiectasis (2 sources) Mucopurulent chronic bronchitis; Translations: [Mucopurulent chronic bronchitis] 01-18-2020 Chronic Chronic obstructive pulmonary disease and bronchiectasis (1 source) Chronic obstructive pulmonary disease and bronchiectasis 01-18-2020 Coronary atherosclerosis and other heart disease (2 sources) Coronary atherosclerosis and other heart disease 08-04-2015 Diabetes mellitus without complication (6 sources) Other abnormal glucose; Translations: [Impaired glucose tolerance] 01-21-2019 Episodic Disorders of lipid metabolism (20 sources) Hyperlipidemia; Translations: [Hyperlipidemia, unspecified] Onset: 11-09-2020 05-28-2023 Chronic Past or Other Problems Problem Classification Problem Date Documented Date Episodic/Chronic Other upper respiratory disease (3 sources) Dysphonia; Translations: [Dysphonia] Onset: 07-08-2023 Episodic Unclassified (1 source) MCR Well Adult - In general the patient feels well with no complaints, has good energy level and is sleeping poorly. The patient has a balanced diet and takes supplemental vitamins. The patient does not exercise and sleeps 5 hours per night. The patient denies having trouble with bathing, dressing/grooming, toileting, preparing meals and ambulating. The patient denies having trouble with grocery shopping, driving, use of telephone, housework, laundry, preparing/taking medications and finances. The patient has a Healthcare Power of Maintenance Services Dispatcher and a Living Will. Note for MCR Well Adult : reviewed by [facility] 05-28-2023 Unclassified (1 source) Elbow pain - The pain is described as being located in the right elbow. Note for Elbow pain : Was seen in office 02-11-23 with a diagnosis of olecranon bursitis. Continues with mild discomfort, swelling is getting worse. reviewed by [facility] 03-11-2023 Unclassified (1 source) Elbow pain - The onset of the pain has been acute and has been occurring in a persistent pattern for 2 days. The course has been without change. The pain is moderate and is characterized as a dull aching. The pain is described as being located in the right elbow. The symptoms have been associated with swelling in the elbow. Note for Elbow pain : reviewed by [facility] 02-11-2023 Unclassified (1 source) Diarrhea - The onset of the diarrhea has been acute and has been occurring for 2 weeks. The stools are watery. The frequency of bowel movements has been 4 per day. The volume of the stools is normal. The symptoms have been associated with weakness. 07-25-2022 Unclassified (1 source) Skin Lesion - The lesion is located on the upper extremity (Right forearm). Note for Skin lesion : Here for removal. 05-28-2022 Unclassified (1 source) MCR Well Adult - In general the patient feels well with minor complaints (sometimes he feels well not all the time though2 days ago he did not feel good b ut today he does), has decreased energy level and is sleeping poorly. The patient has a balanced diet. The patient does not exercise and sleeps 7 (6/7) hours per night. The patient denies having trouble with bathing, dressing/grooming, toileting, preparing meals and ambulating. The patient denies having trouble with grocery shopping, driving, use of telephone, housework, laundry, preparing/taking medications and finances. The patient has a Healthcare Power of Maintenance Services Dispatcher and a Living Will. Note for MCR Well Adult : pt is due for tetanus shotpt is going this fridy o get a biopsy done on his lungs 11-22-2021 Unclassified (1 source) Weakness - The onset of the weakness has been acute and has been occurring in a persistent pattern for 1 week. The course has been constant. The weakness is characterized as difficulty in walking. Note for Weakness : Was treated for pneumonia in July. Continues with dry cough (occasionally productive). Also complains of dizziness in the morning. Called utility person last week and started Prednisone 10mg and Levofloxacin with no improvement. Has gotten worse in the past two days. Also has had mental confusion and urinary frequency. No dysuria. The leg weakness, shakiness and dizziness are his worst sx, he states that these didnt start until after he started the prednisone. He took 4 per day for 4 days then 3 per day the last 3 days ( is on a tapering dosage 4qd x 4 days then 3 qd x 4 days then 2 qd x 4 days then 1 qd x 4 days ) 08-22-2021 Unclassified (1 source) Cold Symptoms - Symptoms include sore throat, scratchy throat, hoarseness, dry cough, wheezing and general malaise (fatigue, no body aches), but do not include sneezing, nasal congestion, runny nose, ear pain, ear fullness, fever, chills, headache or facial pain. The onset was gradual 3 week(s) ago. The symptoms occur constantly. The patient describes this as moderate in severity and worsening. The patient is not currently being treated for this problem. Risk factors do not include child in daycare or smoking. The patient has not been exposed to an individual with a cough, an individual with an upper respiratory infection, an individual with similar symptoms, an individual with strep or secondhand smoke. Patient denies history of seasonal allergies, recurrent sinusitis, recurrent strep pharyngitis, asthma, tonsillectomy or recurrent ear infections. Note for Upper respiratory infection : Patient had an abdominal CT scan that showed an infiltrate in his lower right lung on Saturday.Patient is fully vaccinated for COVID. reports that the patient's cough is worse this week than it was last week. 07-28-2021 Unclassified (1 source) Abdominal pain - The onset of the abdominal pain has been gradual and has been occurring in an intermittent pattern for 5 days. The course has been decreasing. The pain is described as a moderate pressure sensation (he said its an irritating pain). The pain is located in the left lower quadrant and radiates to the back and left flank. The symptoms are aggravated by meals (1/2 to 1 hour after eating). The symptoms have been associated with bloating. Note for Abdominal pain : no appetite- and feels tense at times wakes him up out of sleep- and he will have to sit up- is not sleeping well pt said getting up and moving/ or getting his mind of it is the only thing that helps reviewed by [facility] 05-17-2021 Unclassified (1 source) Cold Symptoms - Symptoms include runny nose, ear pain, sore throat, hoarseness and dry cough (having some SOB), but do not include fever. The onset was sudden 3 day(s) ago. The symptoms occur frequently. The patient describes this as moderate in severity and worsening (has some testing done at pulmonary yesterday and had a nebulizer tx and woke up this morning worse than yesterday.). The patient is not currently being treated for this problem. Risk factors do not include smoking. The patient has not been exposed to an individual with a cough, an individual with an upper respiratory infection, an individual with similar symptoms, an individual with strep or secondhand smoke. 04-07-2021 Unclassified (1 source) Transition into care - The patient is transitioning into care from a hospital and a summary of care was reviewed. 02-28-2021 Unclassified (1 source) [ADDITIONAL REASON] Follow up consultation - The patient is here to follow-up after hospitalization ([facility]) on : (02/20/21). Current symptoms include sob when he reclines back, even just a little. Note for Consultation follow-up : pt says it tightens up and he has to try and get his breath right now he feels finept said the other night he went to bed at 10:30 pm and he woke up at 1 am and could not breath and it lasted all morninghe called Dr. Yang about his sx and they told him to contact his cardiologistpt says he weed eats every day before noon pulse was 30 on BP machine, 35 on pulse oximeter, and when i checked it it was 40when he relaxes is when he gets the sobpt was given ranitidine years ago and wants a refill-- unsure if you still prescribe this or not 02-28-2021 Unclassified (1 source) MCR Well Adult - In general the patient feels well with no complaints, has decreased energy level and is sleeping well. The patient has a balanced diet and takes supplemental vitamins. The patient exercises 3 - 4 times per week (walks) and sleeps 8 hours per night. The patient denies having trouble with bathing, dressing/grooming, toileting, preparing meals and ambulating. The patient denies having trouble with grocery shopping, driving, use of telephone, housework, laundry, preparing/taking medications and finances. The patient has a Healthcare Power of Maintenance Services Dispatcher and a Living Will. 01-26-2019 Unclassified (1 source) MCR Well Adult - In general the patient feels well with no complaints, has decreased energy level and is sleeping poorly. The patient has a balanced diet and takes supplemental vitamins. The patient exercises weekly and sleeps 5 hours per night. Over the past 2 weeks, the patient has been feeling down, depressed, or hopeless (sometimes-not all of the time), but has not been feeling little interest or pleasure in doing things. The patient denies having trouble with bathing, dressing/grooming, toileting, preparing meals and ambulating. The patient denies having trouble with grocery shopping, driving, use of telephone, housework, laundry, preparing/taking medications and finances. The patient denies falling more than once in the past 12 months. The patient has a Healthcare Power of Maintenance Services Dispatcher and a Living Will. 07-09-2016 Unclassified (1 source) Abdominal pain - The onset of the abdominal pain has been sudden and has been occurring in an intermittent pattern for 3 days. The course has been increasing. The pain is described as a moderate sharp pain. The pain is located in the lower abdomen and does not radiate. The symptoms have no aggravating factors but are relieved by nothing (Urinating relieves the pain temporarily. (UA obtained)). The symptoms have been associated with bloating and nausea, while the symptoms have not been associated with bloody stools, constipation, dark urine, diarrhea, dysuria, fever or vomiting. Note for Abdominal pain : Patient reports he has taken 2 augmentin, 1 yesterday and 1 today. Patient has a history of diverticulitis. Patient is leaving for [place] in 2 days. 11-27-2013 Unclassified (1 source) follow up muscle pain - Pt was seen 2 weeks ago for muscle pain, was treated with prednisone. Pt states sx have resolved and is feeling fine. 10-29-2013 Unclassified (1 source) Polymyalgia - Pt is here this morning because hewas here couple weeks ago for pain in his bilaeral shoulders and buttocks. Had labs done which were normal. Pt has been taking 2 alleve bid and this has not been helping. Pain is buttocks is worse than pain in his shoulders. Pain in buttocks does radiate down his legs. At times he will have a little bit of tingling in feet but no numbness. Hands bilaterally will feel numb at times. Here for re-evaluation and see if further testing is recommended. Is leaving for [place] next week and concerned that he may not be able to go. 10-15-2013 Unclassified (1 source) sore on back - pt has sore spot on his back that has been there for 1 week, another spot is starting on is chest. Pt is also having pain in his left arm, pt denies chest pain and SOB 01-05-2013 Unclassified (1 source) [facility] Well Adult - In general the patient feels well with minor complaints (Patient requesting to have a his heart checked closely . Patient complains of times of feeling slightly lightheaded. ), has good energy level and is sleeping poorly (Patient complains of nights that he worries a lot. Patient does note that he sleeps a lot better when he takes an Ativan. Patient would like to discuss this more today.). The patient has a balanced diet and takes supplemental vitamins. The patient does not exercise and sleeps 6 hours per night. Over the past 2 weeks, the patient has been feeling down, depressed, or hopeless, but has not been feeling little interest or pleasure in doing things. The patient denies having trouble with bathing, dressing/grooming, toileting, preparing meals and ambulating. The patient denies having trouble with grocery shopping, driving, use of telephone, housework, laundry, preparing/taking medications and finances. Patient has not had a Zostavax vaccine. Note for [facility] Well Adult : Patient is fasting today. 11-21-2012 Unclassified (1 source) Anxiety - The onset of the anxiety has been gradual and has been occurring in a persistent pattern for 1 month. The course has been constant. The anxiety is characterized as nervousness. Precipitating factors include specific circumstances (Feels this is work related. He had some disagreements at work and confrotations with people which sparked this whole anxiety issue. He carries this for 24 hours a day. ). The symptoms have been associated with nausea (and will feel bloated. Not sleeping at night. Pt just getting exhauseted.). Note for Anxiety : reviewed by [facility] 10-03-2012 Unclassified (1 source) Well Adult, male - The patient feels well with minor complaints, has good energy level and is sleeping poorly (cannot sleep all night). Date of most recent cholesterol screening : (2010). Date of most recent glucose screening : (). Patient has not had a Zostavax vaccine. Date of Pneumovax : (2008). Date of most recent influenza vaccine : (2010). Last Tetanus booster: unknown/unsure. The patient has a balanced diet and takes supplemental vitamins (eye vitamin). Patient does not exercise. Patient sleeps 6 hours per night. 09-21-2011 Unclassified (1 source) Abdominal pain - The onset of the pain has been gradual and has been occurring in a persistent pattern for 2 days. The course has been constant. The pain is described as a moderate dull ache. The pain is located in the left lower quadrant and does not radiate. The symptoms are relieved by bowel movements. Note for Abdominal pain : Patient ate strawberries a couple days ago. 04-17-2011 Unclassified (1 source) Well adult male - The patient feels well with minor complaints (feels sick on stomach at times). Patient has not had bone density screening. Date of most recent cholesterol screening : (Jun). Patient has not had a Zostavax vaccine. Date of Pneumovax : (thinks did last yr or yr before). Date of most recent influenza vaccine : (last year needs one today). Last Tetanus booster: unknown/unsure (less than 10 yrs(about 8 yrs ago)). The patient has a balanced diet and takes supplemental vitamins. Patient exercises daily. Patient sleeps 5 (not enough c/o trouble sleeping) hours per night. 07-12-2010 Results Test Name Value Interpretation Reference Range Facil ity Vital Signs Date Time Vital Sign Value Performing Clinician Faci litdaksha 05-28-2023 07:51-0400 Body height 176.53 cm Dyana Agarwal LPN [facility]. 05-28-2023 07:51-0400 Body mass index (BMI) [Ratio] 28.09 kg/m2 Dyana Agarwal LPN [facility]. 05-28-2023 07:51-0400 Body surface area Derived from formula 2.05 m2 Dyana Agarwal LPN [facility] [employer] [facility] [facility] 05-28-2023 07:51-0400 Body weight 87.54 kg [facility]wal [facility] [employer] [facility] 05-28-2023 07:51-0400 Diastolic blood pressure 68 mm[Hg] Dyana Agarwal [facility] [employer] [facility] Encounters Encounter Date Encounter Type Care Provider Facility Start: 10-08-[address] [facility] Start: 08-30-2023 End: 08-30-2023 ambulatory EASTON COTA [facility] Start: 07-08-2023 End: 10-04-[address] [facility] Start: 06-24-2023 End: 06-24-2023 ambulatory EASTON COTA [facility] Start: 05-28-2023 End: 05-28-2023 Initial preventive medicine new patient 66yrs&> Marco Resendiz MD Work Phone: [facility] Start: 05-21-2023 End: 05-21-2023 Orders Marco Resendiz MD Work Phone: [facility]. Start: 04-23-2023 End: 04-23-2023 Orders Marco Resendiz MD Work Phone: [facility]. Start: 04-08-2023 End: 07-05-[address] [facility] Start: 04-02-2023 End: 04-02-2023 ambulatory MAURI COTA [facility] Start: 04-01-2023 End: 04-01-2023 ambulatory MAURI COTA [facility] Start: 03-26-2023 ambulatory MAURI COTA [facility] Start: 03-11-2023 End: 03-11-2023 Patient encounter procedure Marco Resendiz MD Work Phone: [facility] Start: 02-11-2023 End: 02-11-2023 Office outpatient visit 15 minutes Marco Resendiz MD Work Phone: [employer] Start: 01-07-2023 End: 04-07-2023 ambulatory [facility]: 12-04-2022 End: 12-04-2022 Office outpatient visit 25 minutes Marco Resendiz MD Work Phone: Branch. Start: 07-25-2022 End: 07-25-2022 Office outpatient visit 15 minutes Marco Resendiz MD Work Phone: Branch. Start: 06-04-2022 End: 06-04-2022 Orders Marco Resendiz MD Work Phone: Branch. Start: 05-28-2022 End: 05-28-2022 Office outpatient visit 15 minutes Marco Resendiz MD Work Phone: Branch. Start: 05-22-2022 End: 05-22-2022 Office outpatient visit 25 minutes Marco Resendiz MD Work Phone: Branch. Start: 03-07-2022 End: 03-07-2022 Telephone follow-up Marco Resendiz MD Work Phone: [employer] Start: 03-06-2022 End: 03-06-2022 Historical Summary Marco Resendiz MD Work Phone: Branch. Start: 11-22-2021 End: 11-22-2021 Periodic preventive med est patient 65yrs& older Marco Resendiz MD Work Phone: Branch. Start: 11-02-2021 End: 11-02-2021 Orders Marco Resendiz MD Work Phone: Branch. Start: 09-26-2021 End: 09-26-2021 Orders Marco Resendiz MD Work Phone: [employer] Start: 08-22-2021 End: 08-22-2021 Office outpatient visit 15 minutes Marco Resendiz MD Work Phone: Branch. Start: 08-09-2021 End: 08-09-2021 Medication Marco Resendiz MD Work Phone: Branch. Start: 07-28-2021 End: 07-28-2021 Office outpatient visit 15 minutes Marco Resendiz MD Work Phone: Branch. Start: 06-23-2021 End: 06-23-2021 Historical Summary Marco Resendiz MD Work Phone: Branch. Start: 06-09-2021 End: 06-09-2021 Medication Marco Resendiz MD Work Phone: Branch. Start: 05-30-2021 End: 05-30-2021 Telephone follow-up Marco Resendiz MD Work Phone: Branch. Start: 05-29-2021 End: 05-29-2021 Medication Marco Resendiz MD Work Phone: Branch. Start: 05-29-2021 End: 05-29-2021 Orders Marco Resendiz MD Work Phone: Branch. Start: 05-17-2021 End: 05-17-2021 Office outpatient visit 15 minutes Marco Resendiz MD Work Phone: [employer] Start: 05-09-2021 End: 05-09-2021 Office outpatient visit 25 minutes Marco Resendiz MD Work Phone: Branch. Start: 04-07-2021 End: 04-07-2021 Patient encounter procedure Marco Resendiz MD Work Phone: Branch. Start: 02-28-2021 End: 02-28-2021 Office outpatient visit 25 minutes Marco Resendiz MD Work Phone: [employer] Start: 02-24-2021 End: 02-24-2021 Telephone follow-up Marco Resendiz MD Work Phone: Branch. Start: 11-09-2020 End: 11-09-2020 Office outpatient visit 25 minutes Marco Resendiz MD Work Phone: [employer] Start: 07-21-2020 End: 07-21-2020 Patient encounter procedure Marco Resendiz MD Work Phone: Branch. Start: 07-14-2020 End: 07-14-2020 Orders Marco Resendiz MD Work Phone: Branch. Start: 03-21-2020 End: 03-21-2020 Periodic preventive med est patient 65yrs& older Marco Resendiz MD Work Phone: Branch. Start: 02-23-2020 End: 02-23-2020 Medication Marco Resendiz MD Work Phone: Branch. Start: 01-18-2020 End: 01-18-2020 Office outpatient visit 15 minutes Marco Resendiz MD Work Phone: Branch. Start: 01-04-2020 End: 01-04-2020 Office outpatient visit 15 minutes Marco Resendiz MD Work Phone: Branch. Start: 12-18-2019 End: 12-25-2019 Orders Marco Resendiz MD Work Phone: [employer] Start: 07-20-2019 End: 07-20-2019 Office outpatient visit 25 minutes Marco Resendiz MD Work Phone: Branch. Start: 07-14-2019 End: 07-14-2019 Orders Marco Resendiz MD Work Phone: Branch. Start: 01-26-2019 End: 01-26-2019 Periodic preventive med est patient 65yrs& older Marco Resendiz MD Work Phone: Branch. Start: 07-15-2018 End: 07-15-2018 Office outpatient visit 25 minutes Marco Resendiz MD Work Phone: Branch. Start: 07-08-2018 End: 07-08-2018 Nursing evaluation of patient and report Marco Resendiz MD Work Phone: [employer] Start: 01-14-2018 End: 01-14-2018 Office outpatient visit 25 minutes Marco Resendiz MD Work Phone: [employer] Start: 07-08-2017 End: 07-08-2017 Office outpatient visit 25 minutes Marco Resendiz MD Work Phone: [employer] Start: 01-07-2017 End: 01-07-2017 Patient encounter procedure Marco Resendiz MD Work Phone: [employer] Start: 07-09-2016 End: 07-09-2016 Patient encounter procedure Marco Resendiz MD Work Phone: Branch. Start: 02-23-2016 End: 02-23-2016 Orders Marco Resendiz MD Work Phone: [employer] Start: 02-09-2016 End: 02-09-2016 Office outpatient visit 25 minutes Marco Resendiz MD Work Phone: [employer] Start: 08-04-2015 End: 08-04-2015 Office outpatient visit 25 minutes Marco Resendiz MD Work Phone: [employer] Start: 02-12-2015 End: 02-12-2015 Historical Summary aMrco Resendiz MD Work Phone: [employer] Start: 02-03-2015 End: 02-03-2015 Periodic preventive med est patient 65yrs& older Marco Resendiz MD Work Phone: Branch. Start: 07-26-2014 End: 07-26-2014 Office outpatient visit 25 minutes Marco Resendiz MD Work Phone: [employer] Start: 01-11-2014 End: 01-11-2014 Patient encounter procedure Marco Resendiz MD Work Phone: [employer] Start: 11-27-2013 End: 11-27-2013 Patient encounter procedure Marco Resendiz MD Work Phone: [employer] Start: 10-29-2013 End: 10-29-2013 Patient encounter procedure Marco Resendiz MD Work Phone: Branch. Start: 10-15-2013 End: 10-15-2013 Patient encounter procedure Marco Resendiz MD Work Phone: Branch. Start: 09-28-2013 End: 09-28-2013 Orders Marco Resendiz MD Work Phone: Branch. Start: 09-28-2013 End: 09-28-2013 Patient encounter procedure Marco Resendiz MD Work Phone: Branch. Start: 06-05-2013 End: 06-05-2013 Medication Marco Resendiz MD Work Phone: Branch. Start: 05-11-2013 End: 05-11-2013 Medication Marco Resendiz MD Work Phone: Branch. Start: 04-06-2013 End: 04-06-2013 Orders Marco Resendiz MD Work Phone: Branch. Start: 01-05-2013 End: 01-05-2013 Patient encounter procedure Marco Resendiz MD Work Phone: Branch. Start: 11-21-2012 End: 11-21-2012 Patient encounter procedure Marco Resendiz MD Work Phone: Branch. Start: 10-17-2012 End: 10-17-2012 Medication Marco Resendiz MD Work Phone: Branch. Start: 10-03-2012 End: 10-03-2012 Patient encounter procedure Marco Resendiz MD Work Phone: Branch. Start: 09-11-2012 End: 09-11-2012 Nursing evaluation of patient and report Marco Resendiz MD Work Phone: Branch. Start: 12-24-2011 End: 12-24-2011 Medication Marco Resendiz MD Work Phone: Branch. Start: 09-21-2011 End: 09-21-2011 Patient encounter procedure Marco Resendiz MD Work Phone: [employer] Start: 09-14-2011 End: 09-14-2011 Orders Marco Resendiz MD Work Phone: [employer] Start: 08-27-2011 End: 08-28-2011 Orders Marco Resendiz MD Work Phone: [employer] Start: 08-24-2011 End: 08-24-2011 Office outpatient visit 5 minutes Marco Resendiz MD Work Phone: [employer] Start: 04-16-2011 End: 04-17-2011 Patient encounter procedure Marco Resendiz MD Work Phone: [employer] Start: 03-01-2011 End: 03-01-2011 Medication Marco Resendiz MD Work Phone: [employer] Start: 01-29-2011 End: 01-29-2011 Medication Marco Resendiz MD Work Phone: [employer] Start: 07-19-2010 End: 07-19-2010 Medication Marco Resendiz MD Work Phone: [employer] Start: 07-12-2010 End: 07-12-2010 Patient encounter procedure Marco Resendiz MD Work Phone: [employer] Start: 07-11-2010 End: 07-11-2010 Historical Summary Marco Resendiz MD Work Phone: [employer] Start: 07-04-2010 End: 07-04-2010 Orders Marco Resendiz MD Work Phone: [employer] Procedures Date Procedure Procedure Detail Performing Clinician Start: 05-28-2023 End: 05-28-2023 Adv care pln/ no alt dcsn mkr docd or refusal Marco Resendiz MD Work Phone: Start: 05-28-2023 End: 05-28-2023 Depression screening Marco Resendiz MD Work Phone: Start: 05-28-2023 End: 05-28-2023 Falls risk assessment documented Marco Resendiz MD Work Phone: Start: 05-28-2023 End: 05-28-2023 PPPS, subseq visit Marco Resendiz MD Work Phone: Start: 05-28-2023 End: 05-28-2023 Pt falls assess docd w/o fall/injury past year Marco Resendiz MD Work Phone: Start: 05-28-2023 End: 05-28-2023 Scr dep neg, no plan reqd Marco Resendiz MD Work Phone: Start: 05-21-2023 End: 05-21-2023 Prostate specific antigen measurement Dyana Aagrwal CUSTOMER DEVELOPMENT REPRESENTATIVE Plan of Treatment Date Care Activity Detail Author Start: 12-03-2023 Patient encounter procedure Medical; RTN OFFICE VISIT - 6mos rtn [employer] Start: 03-Dec-2023 9:50 MD Marco Resendiz Appointment Request Branch Start: 07-25-2022 Cul bact stool aerob ic isol salmonella&shigell STAN CULTURE-STOOL Start: 25-Jul-2022 13:37 Request Branch.; Branch. Work Phone: Immunizations Immunization Date Immunization Notes Care Provider [facility] 11-02-2020 COVID-Moderna (100 MCG/0.5 ML) Marco Resendiz MD Work Phone: [employer] Branch. 07-21-2020 influenza virus vaccine, unspecified formulation Marco Resendiz MD Work Phone: [facility][x+1]; Branch 07-21-2020 influenza, injectabl e, quadrivalent, contains preservative Marco Resendiz MD Work Phone: [facility][x+1]; Branch Payers Date Payer Category Payer Unknown [id number] [id number] [id number] 1936 Unknown [id number] 2.16.8 [id number] 1936 Unknown [id number] 2.16.8 [id number] 1936 Unknown [id number] 2.16.8 [id number] 1936 Unknown [id number] 2.16.8 [id number] 1936 Unknown [id number] 2.16.8 [id number] 1936 Unknown [id number] 2.16.8 [id number] 1936 Unknown [id number] 2.16.84 [id number] 1936 Unknown [id number] 2.16.8 [id number] Medicare [id number] Private Health Insurance [id number] Unknown Social History Date Type Detail Facility Caffeine Use Caffeine Use [employer].; Branch. Exercise History: Exercise History: ; Lig ht. Branch.; Branch. Tobacco Use: Tobacco Use: ; Former smoker . Branch.; Branch. Male [employer] [facility]. Work Phone: Ex-smoker [employer] Branch. Work Phone: Summary Purpose Family History Cancer Status:Active Comments:Sister. Brother. Advance Directives No Advanced Directives Records FoundNo Advanced Directives Records FoundNo Advanced Directives Records FoundNo Advanced Directives Records Found Additional Source Comments (unrecognized sect ion and content) No Status Records FoundNo Status Records FoundNo Status Records FoundNo Status Records Found INFORMATION SOURCE (unrecogn ized section and content) DATE CREATED AUTHOR AUTHOR'S ORGANIZ ATION 12/15/2021 [facility] DATE CREATED AUTHOR AUTHOR'S ORGANIZ ATION 05/23/2023 [facility] DATE CREATED AUTHOR AUTHOR'S VAISHALI ATION 10/08/2023 [facility] FOR RECORDS PERTAINING TO PATIENTS WHO ARE OR HAVE BEEN ENROLLED IN A CHEMICAL DEPENDENCY/SUBSTANCEABUSE PROGRAM, SOME INFORMATION MAY BE OMITTED. This clinical summary was aggregated from multiple sources. Caution should be exercised in using it in the provision of clinical care. This summary normalizes information from multiple sources, and as a consequence, information in this document may materially change the coding, format and clinical context of patient data. In addition, data may be omitted in some cases. CLINICAL DECISIONS SHOULD BE BASED ON THE PRIMARY CLINICAL RECORDS. [facility]. provides no warranty or guarantee of the accuracy or completeness of information in this document.
== END | disposition home or self-care (01) ==
LOC: LABSPEC 13:43
PROVIDERS: PCP Family Medicine; Referring Provider Internal Medicine Critical Care Medicine; Visit Provider Internal Medicine Critical Care Medicine
DX: D86.0 Sarcoidosis of lung (principal); J15.212 Pneumonia due to Methicillin resistant Staphylococcus aureus; A15.9 Respiratory tuberculosis unspecified; J45.909 Unspecified asthma, uncomplicated
CPT/HCPCS: 87015; 87070; 87116; 87205; 87206

== ENCOUNTER → 2023-12-11 | Outpatient (CLI) | payer MEDICARE, OTHER, SELFPAY ==
--- NOTE | 2023-12-11 13:47 | CT_ITS ---
INDICATION: Concern for bronchiectesis EXAMINATION: CT CHEST WITHOUT CONTRAST - CT Chest W/O Contrast Injection TECHNIQUE: Helically acquired images were obtained of the chest. A radiation dose optimization technique was used for this scan. IV Contrast dosage and agent: None. RADIATION DOSAGE (If Supplied By Facility): CTDIvol = ( 13.10 ) mGy, DLP = ( 455.02 ) mGycm COMPARISON: CT chest 11/08/2021. FINDINGS: LUNGS: Multiple small pulmonary nodules. The majority of the nodules itemized on the prior are decreased size including: Left upper lobe 4 mm nodule on image #61; 4 mm nodule left upper lobe image 35; 4 mm nodule left upper lobe image #55; and the previously noted cavitary nodule in the left upper lobe is not identified. A few nodules are increased in size includin mm nodule right upper lobe, image #32; 4 mm nodule right upper lobe, image #35; 3 mm nodule left upper lobe, image #22. New nodule 3 mm left upper lobe image 43. Scattered calcified granulomata bilaterally. Mild interstitial subpleural reticular opacities not significantly changed. There is minimal bronchiectasis predominantly in the lower lobes, not significantly changed. No consolidation. LARGE AIRWAYS: Unremarkable. PLEURA: No pleural effusion. No pneumothorax. MEDIASTINUM: Calcified mediastinal and hilar lymph nodes.. HEART: Not enlarged. CORONARY ARTERIES: Coronary artery calcification is seen. AORTA/VESSELS: No aortic aneurysm. ESOPHAGUS: Unremarkable. UPPER ABDOMEN: No acute findings. BONES/SOFT TISSUES: No acute abnormality. OTHER/LINES: None. CT/Chest without Contrast IMPRESSION: Multiple pulmonary nodules, most of which are decreased size compared to the prior, with a few increased size and at least one new nodule. Resolution of previously noted cavitary nodule left upper lobe. Stable mild interstitial disease with minimal basilar bronchiectasis. Electronically Signed: Dannielle Mccall MD at 7:00 EST ,
--- OUTSIDE RECORDS SUMMARY | 2023-12-11 18:37 | XMS RPT_ITS | CCD ---
Author Name Unknown Address [address] [place] [address] Organization [facility] Care Team Providers Care Dental Scheduler Name Role Phone COURT [place] Admitting Unavailable [...] Seo Unavailable Trey COTA, Dr. Seals Unavailable [phone] Rae VALDEZ, Alondra Unavailable Joshua COTA., Dr. Menezes Unavailable [phone] Alfonso GAXIOLAC, Starla Phelan Unavailable Miguelito COAGULATING BATH OPERATOR, Bhavna E Unavailable Unavailable [place] COAGULATING BATH OPERATOR, Bela C Unavailable Unavailable Gogoi (scribe), Hemanta Unavailable Unavaila ble Jesus COTA, Chidi Trevizo Unavailable Mala GAXIOLAC, Raciel Elizondo Unavailable Mala, Francisca C Unavailable Unavailable Mala VENCES, Elina L Unavailable Unavail able [place] COAGULATING BATH OPERATOR, Jessica Unavailable Unavailable Walter VENCES, Nanci Trevizo Unavailable Unavaila ble Rodolfo COAGULATING BATH OPERATOR, Elise Unavailable Unavailable Jose VENCES, Venus Unavailable Alverto RN, Ayanna Martini Unavailable Unavailable Usama COAGULATING BATH OPERATOR, Gisela Unavailable Unavailable [place] COAGULATING BATH OPERATOR, Colleen K Unavailable Unavai marcela GAXIOLAC, Arlette J Unavailable Dave (Scribe), Rashad Unavailable Unavailab le Sosa COAGULATING BATH OPERATOR, Ana L Unavailable Unavailab le Mary COAGULATING BATH OPERATOR, Lilly Vazquez Unavailable Unavailab valentina Agarwal COAGULATING BATH OPERATOR, Dyana Greene Unavailable Unavailab valentina Tomlinson MA, Jessica Unavailable Unavailable Maico COTA, Tono Trevizo Unavailable Vess COAGULATING BATH OPERATOR, Neilee L Unavailable Unavailable [place] COAGULATING BATH OPERATOR, Patt Unavailable Unavailabl e Priscila COAGULATING BATH OPERATOR, Mag N Unavailable Unavaila ble Unavailable Unavailable Medications Current Medications Medication Drug Class(es) Dates Sig (Normalized) Sig (Original) apixaban 5 mg oral tablet (2 sources) Factor Xa Inhibitor take 1 tablet by mouth twice daily Eliquis 5 MG Oral Tablet ; 1 two times daily (5 MG) LORazepam 0.5 mg oral tablet (2 sources) Benzodiazepine Start: 12-03-2023 Ativan 0.5 mg tablet ; 1 (one) Tablet three times daily, as needed for anxiety for 0 days Quantity: 90 {Tablet} Refills: 0 Ordered: 03-Dec-2023 MD Marco Resendiz Start: 03-Dec-2023 Comments: Medication taken as needed. .OARRS03/11/2023w m Completed/Discontinued Medications Medication Drug Class(es) Dates Sig (Normalized) Sig (Original) acyclovir 800 mg oral tablet (2 sources) Herpesvirus Nucleoside Analog DNA Polymerase Inhibitor, Herpes [...] mg / clavulanate 125 mg oral tablet (4 sources) Penicillin-class Antibacterial Start: 03-21-2020 End: 07-21-2020 take 1 tablet by mouth twice daily Amoxicillin-Pot Clavulanate 875-125 MG Oral Tablet ; 1 (one) Tablet two times daily for 10 days Quantity: 20 {Tablet} Refills: 0 Ordered: 21-Mar-2020 MD Chidi Lee Start: 21-Mar-2020 End: 31-Mar-2020 Status: Inactive Problems Active Problems Problem Classification Problem Date Documented Date Episodic/Chronic Abdominal pain (10 sources) Left lower quadrant pain; Translations: [Left lower quadrant pain] 05-28-2023 Episodic Administrative/social admission (8 sources) Issue of repeat prescriptions 07-09-2016 Episodic Allergic reactions (4 sources) Nummular eczema; Translations: [Nummular dermatitis] 12-04-2022 Episodic Anxiety disorders (20 sources) Panic disorder; Translations: [Panic disorder [episodic paroxysmal anxiety]] 05-28-2023 Chronic Aortic; peripheral; and visceral artery aneurysms (2 sources) Abdominal aortic aneurysm; Translations: [Abdominal aneurysm without mention of rupture] 12-03-2023 Chronic Asthma (9 sources) Asthma; Translations: [Unspecified asthma, uncomplicated] 05-28-2023 Chronic Cardiac dysrhythmias (17 sources) Paroxysmal atrial fibrillation; Translations: [Paroxysmal atrial fibrillation] 05-28-2023 Chronic Cardiac dysrhythmias (6 sources) Bradycardia; Translations: [Bradycardia, unspecified] 02-28-2021 Episodic Chronic obstructive pulmonary disease and bronchiectasis (4 sources) Mucopurulent chronic bronchitis; Translations: [Mucopurulent chronic bronchitis] 01-18-2020 Chronic Chronic obstructive pulmonary disease and bronchiectasis (2 sources) Chronic obstructive pulmonary disease and bronchiectasis 01-18-2020 Coronary atherosclerosis and other heart disease (4 sources) Coronary atherosclerosis and other heart disease 08-04-2015 Diabetes mellitus without complication (12 sources) Other abnormal glucose; Translations: [Impaired glucose tolerance] 01-21-2019 Episodic Disorders of lipid metabolism (20 sources) Hyperlipidemia; Translations: [Hyperlipidemia, unspecified] Onset: 11-09-2020 05-28-2023 Chronic Past or Other Problems Problem Classification Problem Date Documented Date Episodic/Chronic Other upper respiratory disease (3 sources) Dysphonia; Translations: [Dysphonia] Onset: 07-08-2023 Episodic Unclassified (2 sources) MCR Well Adult - In general the [...] The patient has a Healthcare Power of Merit System Director and a Living Will. Note for [facility] Well Adult : reviewed by [facility] 05-28-2023 Unclassified (2 sources) Elbow pain - The pain is described as being located in the right elbow. Note for Elbow pain : Was seen in office 5-8-23 with a diagnosis of olecranon bursitis. Continues with mild discomfort, swelling is getting worse. reviewed by [facility] 03-11-2023 Unclassified (2 sources) Elbow pain - The onset of the [...] Note for Elbow pain : reviewed by [facility] 02-11-2023 Unclassified (2 sources) Diarrhea - The onset of the diarrhea has been acute and has been occurring for 2 weeks. The stools are watery. The frequency of bowel movements has been 4 per day. The volume of the stools is normal. The symptoms have been associated with weakness. 07-25-2022 Unclassified (2 sources) Skin Lesion - The lesion is located on the upper extremity (Right forearm). Note for Skin lesion : Here for removal. 05-28-2022 Unclassified (2 sources) MCR Well Adult - In general the [...] The patient has a Healthcare Power of Merit System Director and a Living Will. Note for [facility] Well Adult : pt is due for tetanus shotpt is going this fridy o get a biopsy done on his lungs 11-22-2021 Unclassified (2 sources) Weakness - The onset of the weakness has been acute and has been occurring in a persistent pattern for 1 week. The course has been constant. The weakness is characterized as difficulty in walking. Note for Weakness : Was treated for pneumonia in July. Continues with dry cough (occasionally productive). Also complains of dizziness in the morning. Called drafting layout worker last week and started Prednisone 10mg and [...] qd x 4 days ) 08-22-2021 Unclassified (2 sources) Cold Symptoms - Symptoms include sore throat, [...] than it was last week. 07-28-2021 Unclassified (2 sources) Abdominal pain - The onset of the [...] that helps reviewed by [facility] 05-17-2021 Unclassified (2 sources) Cold Symptoms - Symptoms include runny nose, [...] patient is here to follow-up after hospitalization ([facility]) on : (02/20/21). Current symptoms include [...] still prescribe this or not 02-28-2021 Unclassified (2 sources) MCR Well Adult - In general the [...] The patient has a Healthcare Power of Merit System Director and a Living Will. 01-26-2019 Unclassified (2 sources) MCR Well Adult - In general the [...] The patient has a Healthcare Power of Merit System Director and a Living Will. 07-09-2016 Unclassified (2 sources) Abdominal pain - The onset of the [...] history of diverticulitis. Patient is leaving for [place] in 2 days. 11-27-2013 Unclassified (2 sources) follow up muscle pain - Pt was seen 2 weeks ago for muscle pain, was treated with prednisone. Pt states sx have resolved and is feeling fine. 10-29-2013 Unclassified (2 sources) Polymyalgia - Pt is here this morning [...] further testing is recommended. Is leaving for [place] next week and concerned that he may not be able to go. 10-15-2013 Unclassified (2 sources) sore on back - pt has sore spot on his back that has been there for 1 week, another spot is starting on is chest. Pt is also having pain in his left arm, pt denies chest pain and SOB 01-05-2013 Unclassified (2 sources) MCR Well Adult - In general the [...] not had a Zostavax vaccine. Note for [facility] Well Adult : Patient is fasting today. 11-21-2012 Unclassified (2 sources) Anxiety - The onset of the anxiety [...] Anxiety : reviewed by [facility] 10-03-2012 Unclassified (2 sources) Well Adult, male - The patient feels [...] sleeps 6 hours per night. 09-21-2011 Unclassified (2 sources) Abdominal pain - The onset of the [...] strawberries a couple days ago. 04-17-2011 Unclassified (2 sources) Well adult male - The patient feels [...] c/o trouble sleeping) hours per night. 07-12-2010 Unclassified (1 source) Follow up consultation - The patient is here to follow-up after hospitalization ([facility]) on : (02/20/21). Current symptoms include [...] this or not 02-28-2021 Unclassified (1 source) [ADDITIONAL REASON] Transition into care - The patient is transitioning into care from a hospital and a summary of care was reviewed. 02-28-2021 Results Test Name Value Interpretation Reference Range Facil ity Vital Signs Date Time Vital Sign Value Performing Clinician Ze george 12-03-2023 07:52-0500 Body height 176.53 cm Marco Resendiz MD Work Phone: [facility]; [facility] 12-03-2023 07:52-0500 Body mass index (BMI) [Ratio] 28.24 kg/m2 Marco Resendiz MD Work Phone: [facility]; [facility] 12-03-2023 07:52-0500 Body surface area Derived from formula 2.05 m2 Marco Resendiz MD Work Phone: [facility]; [facility]. 12-03-2023 07:52-0500 Body weight 88 kg Marco Resendiz MD Work Phone: [facility]; [facility]. 12-03-2023 07:52-0500 Diastolic blood pressure 81 mm[Hg] Marco Resendiz MD Work Phone: [facility]; [facility] Encounters Encounter Date Encounter Type Care Provider Facility Start: 12-03-2023 End: 12-03-2023 Office outpatient visit 25 minutes Marco Resendiz MD Work Phone: [facility] Start: 10-08-[address] [facility] Start: 08-30-2023 End: 08-30-2023 ambulatory EASTON MD [facility] Start: 07-08-2023 End: 10-04-[address] [facility] Start: 06-24-2023 End: 06-24-2023 ambulatory EASTON COTA [facility] Start: 05-28-2023 End: 05-28-2023 Initial preventive medicine new patient 66yrs&> Marco Resendiz MD Work Phone: [facility]. Start: 05-21-2023 End: 05-21-2023 Orders Marco Resendiz MD Work Phone: [facility]. Start: 04-23-2023 End: 04-23-2023 Orders Marco Resendiz MD Work Phone: [facility]. Start: 04-08-2023 End: 07-05-[address] [facility] Start: 04-02-2023 End: 04-02-2023 ambulatory MAURI COTA [facility] Start: 04-01-2023 End: 04-01-2023 ambulatory MAURI COTA [facility] Start: 03-26-2023 ambulatory MAURI COTA [facility] Start: 03-11-2023 End: 03-11-2023 Patient encounter procedure Marco Resendiz MD Work Phone: [facility]. Start: 02-11-2023 End: 02-11-2023 Office outpatient visit 15 minutes Marco Resendiz MD Work Phone: [facility] Start: 01-07-2023 End: 04-07-[address] [facility] Start: 12-04-2022 End: 12-04-2022 Office outpatient visit 25 minutes Marco Resendiz MD Work Phone: [facility] Start: 07-25-2022 End: 07-25-2022 Office outpatient visit 15 minutes Marco Resendiz MD Work Phone: [facility] Start: 06-04-2022 End: 06-04-2022 Orders Marco Resendiz MD Work Phone: [facility]. Start: 05-28-2022 End: 05-28-2022 Office outpatient visit 15 minutes Marco Resendiz MD Work Phone: [facility]. Start: 05-22-2022 End: 05-22-2022 Office outpatient visit 25 minutes Marco Resendiz MD Work Phone: [facility]. Start: 03-07-2022 End: 03-07-2022 Telephone follow-up Marco Resendiz MD Work Phone: [facility]. Start: 03-06-2022 End: 03-06-2022 Historical Summary Marco Resendiz MD Work Phone: [facility] Start: 11-22-2021 End: 11-22-2021 Periodic preventive med est patient 65yrs& older Marco Resendiz MD Work Phone: [facility]. Start: 11-02-2021 End: 11-02-2021 Orders Marco Resendiz MD Work Phone: [facility]. Start: 09-26-2021 End: 09-26-2021 Orders Marco Resendiz MD Work Phone: [facility]. Start: 08-22-2021 End: 08-22-2021 Office outpatient visit 15 minutes Marco Resendiz MD Work Phone: [facility]. Start: 08-09-2021 End: 08-09-2021 Medication Marco Resendiz MD Work Phone: [facility]. Start: 07-28-2021 End: 07-28-2021 Office outpatient visit 15 minutes Marco Resendiz MD Work Phone: [facility] Start: 06-23-2021 End: 06-23-2021 Historical Summary Marco Resendiz MD Work Phone: [facility] Start: 06-09-2021 End: 06-09-2021 Medication Marco Resendiz MD Work Phone: [facility]. Start: 05-30-2021 End: 05-30-2021 Telephone follow-up Marco Resendiz MD Work Phone: [facility]. Start: 05-29-2021 End: 05-29-2021 Medication Marco Resendiz MD Work Phone: [facility]. Start: 05-29-2021 End: 05-29-2021 Orders Marco Resendiz MD Work Phone: [facility] Start: 05-17-2021 End: 05-17-2021 Office outpatient visit 15 minutes Marco Resendiz MD Work Phone: [facility] Start: 05-09-2021 End: 05-09-2021 Office outpatient visit 25 minutes Marco Resendiz MD Work Phone: [facility] Start: 04-07-2021 End: 04-07-2021 Patient encounter procedure Marco Resendiz MD Work Phone: [facility] Start: 02-28-2021 End: 02-28-2021 Office outpatient visit 25 minutes Marco Resendiz MD Work Phone: [facility] Start: 02-24-2021 End: 02-24-2021 Telephone follow-up Marco Resendiz MD Work Phone: [facility] Start: 11-09-2020 End: 11-09-2020 Office outpatient visit 25 minutes Marco Resendiz MD Work Phone: [facility] Start: 07-21-2020 End: 07-21-2020 Patient encounter procedure Marco Resendiz MD Work Phone: [facility]. Start: 07-14-2020 End: 07-14-2020 Orders Marco Resendiz MD Work Phone: [facility] Start: 03-21-2020 End: 03-21-2020 Periodic preventive med est patient 65yrs& older Marco Resendiz MD Work Phone: [facility]. Start: 02-23-2020 End: 02-23-2020 Medication Marco Resendiz MD Work Phone: [facility]. Start: 01-18-2020 End: 01-18-2020 Office outpatient visit 15 minutes Marco Resendiz MD Work Phone: [facility]. Start: 01-04-2020 End: 01-04-2020 Office outpatient visit 15 minutes Marco Resendiz MD Work Phone: [facility]. Start: 12-18-2019 End: 12-25-2019 Orders Marco Resendiz MD Work Phone: [facility]. Start: 07-20-2019 End: 07-20-2019 Office outpatient visit 25 minutes Marco Resendiz MD Work Phone: [facility] Start: 07-14-2019 End: 07-14-2019 Orders Marco Resendiz MD Work Phone: [facility]. Start: 01-26-2019 End: 01-26-2019 Periodic preventive med est patient 65yrs& older Marco Resendiz MD Work Phone: [facility]. Start: 07-15-2018 End: 07-15-2018 Office outpatient visit 25 minutes Marco Resendiz MD Work Phone: [facility] Start: 07-08-2018 End: 07-08-2018 Nursing evaluation of patient and report Marco Resendiz MD Work Phone: [facility]. Start: 01-14-2018 End: 01-14-2018 Office outpatient visit 25 minutes Marco Resendiz MD Work Phone: [facility] Start: 07-08-2017 End: 07-08-2017 Office outpatient visit 25 minutes Marco Resendiz MD Work Phone: [facility] Start: 01-07-2017 End: 01-07-2017 Patient encounter procedure Marco Resendiz MD Work Phone: [facility] Start: 07-09-2016 End: 07-09-2016 Patient encounter procedure Marco Resendiz MD Work Phone: [facility] Start: 02-23-2016 End: 02-23-2016 Orders Marco Resendiz MD Work Phone: [facility]. Start: 02-09-2016 End: 02-09-2016 Office outpatient visit 25 minutes Marco Resendiz MD Work Phone: [facility] Start: 08-04-2015 End: 08-04-2015 Office outpatient visit 25 minutes Marco Resendiz MD Work Phone: [facility] Start: 02-12-2015 End: 02-12-2015 Historical Summary Marco Resendiz MD Work Phone: [facility] Start: 02-03-2015 End: 02-03-2015 Periodic preventive med est patient 65yrs& older Marco Resendiz MD Work Phone: [facility] Start: 07-26-2014 End: 07-26-2014 Office outpatient visit 25 minutes Marco Resendiz MD Work Phone: [facility] Start: 01-11-2014 End: 01-11-2014 Patient encounter procedure Marco Resendiz MD Work Phone: [facility]. Start: 11-27-2013 End: 11-27-2013 Patient encounter procedure Marco Resendiz MD Work Phone: [facility] Start: 10-29-2013 End: 10-29-2013 Patient encounter procedure Marco Resendiz MD Work Phone: [facility]. Start: 10-15-2013 End: 10-15-2013 Patient encounter procedure Marco Resendiz MD Work Phone: [facility] Start: 09-28-2013 End: 09-28-2013 Orders Marco Resendiz MD Work Phone: [facility]. Start: 09-28-2013 End: 09-28-2013 Patient encounter procedure Marco Resendiz MD Work Phone: [facility] Start: 06-05-2013 End: 06-05-2013 Medication Marco Resendiz MD Work Phone: [facility]. Start: 05-11-2013 End: 05-11-2013 Medication Marco Resendiz MD Work Phone: [facility]. Start: 04-06-2013 End: 04-06-2013 Orders Marco Resendiz MD Work Phone: [facility]. Start: 01-05-2013 End: 01-05-2013 Patient encounter procedure Marco Resendiz MD Work Phone: [facility]. Start: 11-21-2012 End: 11-21-2012 Patient encounter procedure Marco Resendiz MD Work Phone: [facility]. Start: 10-17-2012 End: 10-17-2012 Medication Marco Resendiz MD Work Phone: [facility]. Start: 10-03-2012 End: 10-03-2012 Patient encounter procedure Marco Resendiz MD Work Phone: [facility]. Start: 09-11-2012 End: 09-11-2012 Nursing evaluation of patient and report Marco Resendiz MD Work Phone: [facility]. Start: 12-24-2011 End: 12-24-2011 Medication Marco Resendiz MD Work Phone: [facility]. Start: 09-21-2011 End: 09-21-2011 Patient encounter procedure Marco Resendiz MD Work Phone: [facility]. Start: 09-14-2011 End: 09-14-2011 Orders Marco Resendiz MD Work Phone: [facility]. Start: 08-27-2011 End: 08-28-2011 Orders Marco Resendiz MD Work Phone: [facility]. Start: 08-24-2011 End: 08-24-2011 Office outpatient visit 5 minutes Marco Resendiz MD Work Phone: [facility] Start: 04-16-2011 End: 04-17-2011 Patient encounter procedure Marco Resendiz MD Work Phone: [facility] Start: 03-01-2011 End: 03-01-2011 Medication Marco Resendiz MD Work Phone: [facility] Start: 01-29-2011 End: 01-29-2011 Medication Marco Resendiz MD Work Phone: [facility] Start: 07-19-2010 End: 07-19-2010 Medication Marco Resendiz MD Work Phone: [facility] Start: 07-12-2010 End: 07-12-2010 Patient encounter procedure Marco Resendiz MD Work Phone: [facility] Start: 07-11-2010 End: 07-11-2010 Historical Summary Marco Resendiz MD Work Phone: [facility] Start: 07-04-2010 End: 07-04-2010 Orders Marco Resendiz MD Work Phone: [facility] Procedures Date Procedure Procedure Detail Performing Clinician [...] End: 05-21-2023 Prostate specific antigen measurement Dyana Agarwal COAGULATING BATH OPERATOR Plan of Treatment Date Care Activity Detail Author Start: 06-03-2024 Patient encounter procedure Medical; PHYSICAL - [facility] Start: 03-Jun-2024 10:10-04:00 MD Marco Resendiz Appointment Request [facility] [employer] Start: 05-28-2024 Nursing evaluation o f patient and report Medical; Nurse visit - fasting labs - [facility] Start: 28-May-2024 08:20-04:00 NURSE, FLOAT Appointment Request [facility] Start: 12-03-2023 Patient encounter procedure Medical; RTN OFFICE VISIT - 6mos rtn [facility] Start: 03-Dec-2023 9:50 MD Marco Resendiz Appointment Request [facility] Start: 07-25-2022 Cul bact stool aerob ic isol salmonella&shigell [facility].; [facility]. Work Phone: Immunizations Immunization Date Immunization Notes Care Provider Fa cility 11-02-2020 COVID-Moderna (100 MCG/0.5 ML) Marco Resendiz MD Work Phone: [facility]; [facility] 07-21-2020 influenza virus vaccine, unspecified formulation Marco Resendiz MD Work Phone: [facility]; [facility]. 07-21-2020 influenza, injectabl e, quadrivalent, contains preservative Marco Resendiz MD Work Phone: [facility]; [facility] Payers Date Payer Category Payer Unknown [id number] 2.16.8 [id number] 1936 Unknown [id number] 2.16.8 [id number] 1936 Unknown [id number] 2.16.8 [id number] 1936 Unknown [id number] 2.16.8 [id number] 1936 Unknown [id number] 2.16.8 [id number] 1936 Unknown [id number] 2.16.8 [id number] 1936 Unknown [id number] 2.16.8 [id number] 1936 Unknown [id number] 2.16.84 [id number] 1936 Unknown [id number] 2.16.8 [id number] Medicare [id number] Private Health Insurance [id number] Unknown Social History Date Type Detail Facility Caffeine Use Caffeine Use [facility]; [facility] Exercise History: Exercise History: ; Lig ht. [facility]; [facility] Tobacco Use: Tobacco Use: ; Former smoker . [facility]; [facility] Male [facility]; [facility] Work Phone: Ex-smoker [facility]; [facility] Work Phone: Summary Purpose Family History Cancer Status:Active Comments:Sister. Brother. Cancer Status:Active Comments:Sister. Brother. Advance Directives No Advanced Directives Records FoundNo Advanced Directives Records FoundNo Advanced Directives Records FoundNo Advanced Directives Records Found Additional Source Comments (unrecognized sect ion and content) No Status Records FoundNo Status Records FoundNo Status Records FoundNo Status Records Found INFORMATION SOURCE (unrecogn ized section and content) DATE CREATED AUTHOR AUTHOR'S ORGANIZ ATION 12/15/2021 [facility] ([place]) DATE CREATED AUTHOR AUTHOR'S ORGANIZ ATION 05/23/2023 [facility] DATE CREATED AUTHOR AUTHOR'S ORGANIZ ATION 10/08/2023 [facility] FOR RECORDS PERTAINING TO PATIENTS [...] BE BASED ON THE PRIMARY CLINICAL RECORDS. [facility]. provides no warranty or guarantee of the accuracy or completeness of information in this document.
== END | disposition home or self-care (01) ==
LOC: CT 13:45
PROVIDERS: PCP Family Medicine; Referring Provider Internal Medicine Critical Care Medicine; Visit Provider Internal Medicine Critical Care Medicine
DX: D86.0 Sarcoidosis of lung (principal); J15.212 Pneumonia due to Methicillin resistant Staphylococcus aureus; A15.9 Respiratory tuberculosis unspecified; J45.909 Unspecified asthma, uncomplicated
CPT/HCPCS: 71250

== ENCOUNTER → 2024-01-30 | Outpatient (CLI) | payer MEDICARE, OTHER, SELFPAY | END | disposition home or self-care (01) | PROVIDERS: PCP Family Medicine; Referring Provider Internal Medicine Critical Care Medicine; Visit Provider Internal Medicine Critical Care Medicine | DX: D86.0 Sarcoidosis of lung (principal); J15.212 Pneumonia due to Methicillin resistant Staphylococcus aureus; A15.9 Respiratory tuberculosis unspecified; J45.909 Unspecified asthma, uncomplicated | CPT/HCPCS: 94060; 94726; 94729 ==

== ENCOUNTER → 2024-04-06 | Outpatient (CLI) | payer MEDICARE, OTHER, SELFPAY | END | disposition home or self-care (01) | LOC: SL 08:16 | PROVIDERS: PCP Family Medicine; Referring Provider Nurse Practitioner Acute Care; Visit Provider Nurse Practitioner Acute Care | DX: R09.02 Hypoxemia (principal) | CPT/HCPCS: 94762 ==